=== PATIENT | female | born 1990 | race Caucasian/White ===

== ENCOUNTER 2024-03-28 18:06 | Emergency (ER) | payer MEDICAID, SELFPAY ==
[2024-03-28 18:11] VITALS: BP 111/80; PULSE 65; TEMP 36.7; O2SAT 100; BMI 24.6
--- NOTE | 2024-03-28 18:19 | CT_ITS ---
The [address] [address] Patient Name: GUERLINE ESCUDERO MRN: [id number] date: 1990 Sex: F Assigned Patient Location: ER Current Patient Location: ER Accession/Order Number: [id number] Exam Date: 03/28/2024 19:06 Report Date: 03/28/2024 20:07 At the request of: MEGAN FLOOD Procedure: CT head/brain wo con EXAM: CT head/brain wo con HISTORY: Dizzy, near syncope COMPARISON: None. TECHNIQUE: CT brain noncontrast. Axial scans with reformatted coronal sagittal images. Individualized dose reduction used for this exam. FINDINGS: A density normal without mass, edema or hemorrhage. Normal size ventricles without mass effect or shift. No extra-axial subdural collection or hematoma. No skull fracture or bony lesion. Visualized mastoid, middle ear cavities clear, no sinus fluid level. CT/CT head/brain wo con IMPRESSION: Negative head CT, no acute abnormality seen. Electronically authenticated by: ALEX GONZALES Date: 03/28/2024 20:07
--- NOTE | 2024-03-28 18:19 | ECG_ITS ---
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
--- NOTE | 2024-03-28 18:20 | ED_ITS ---
HPI - Dizziness General Chief Complaint: Dizziness Stated Complaint: LIGHT HEADED, DIZZY, PASSING OUT Time Seen by Provider: 03/28/24 18:13 Source: patient Mode of arrival: walk-in History of Present Illness HPI Narrative: Patient is a 34-year-old female who presents to the emergency department for a 1 hour history of dizziness, lightheadedness and near syncope. She states she was at work when the symptoms developed, however she has not felt well for several days. She has had mild cough and congestion with no objective fevers. She reports decreased appetite but no vomiting or diarrhea. No urinary symptoms. She is not concerned for . No medications taken prior to arrival. She describes the dizziness as being off balance with some sensation that the room was spinning. She states she has had similar symptoms in the past but not regularly. Related Data Previous Rx's ?Medication ?Instructions ?Recorded meclizine 25 mg chewable tablet 25 mg PO QID PRN dizziness #12 tabs 03/28/24 (Antivert) ondansetron 4 mg disintegrating 4 mg PO Q6H PRN nausea and 03/28/24 tablet vomiting #12 tabs Allergies Allergy/AdvReac Type Severity Reaction Status Date / Time No Known Drug Allergies Allergy Verified 03/28/24 18:15 Review of Systems ROS Constitutional Denies: fever or chills Eyes Denies: change in vision Ears, nose, mouth, and throat Denies: throat pain or nasal congestion Respiratory Denies: shortness of breath Gastrointestinal Denies: nausea or vomiting Musculoskeletal Denies: back pain or neck pain Integumentary/Breast Denies: rash Neurological Reports: dizziness; Denies: headache, numbness in extremities or weakness in extremities Hematologic/Lymphatic Denies: easy bruising or easy bleeding Exam Narrative Exam Narrative: Gen.: Awake, alert, in no distress Head: Normocephalic, atraumatic ENT: Moist mucous membranes, TMs clear Respiratory: No respiratory distress, lungs clear bilaterally Cardio: Regular rate and rhythm Gastrointestinal: Abdomen is soft, nondistended and nontender to palpation Extremities: Moves extremities equally Psych: Normal mood and affect Neuro: No focal neuro deficit Skin: Warm, dry, intact Constitutional Vital Signs, click to edit/add: Last Vital Signs Temp 98.0 F 03/28/24 18:11 Pulse 63 03/28/24 20:53 Resp 16 03/28/24 20:53 BP 114/80 03/28/24 20:53 Pulse Ox 100 03/28/24 20:53 O2 Del Method Room Air 03/28/24 20:53 Course Vital Signs Vital signs: Vital Signs Temperature 98.0 F 03/28/24 18:11 Pulse Rate 65 03/28/24 18:11 Respiratory Rate 18 03/28/24 18:11 Blood Pressure 111/80 03/28/24 18:11 Pulse Oximetry 100 03/28/24 18:11 Oxygen Delivery Method Room Air 03/28/24 18:11 Temperature 98.0 F 03/28/24 18:11 Pulse Rate 63 03/28/24 20:53 Respiratory Rate 16 03/28/24 20:53 Blood Pressure 114/80 03/28/24 20:53 Pulse Oximetry 100 03/28/24 20:53 Oxygen Delivery Method Room Air 03/28/24 20:53 MDM - Dizziness MDM Narrative Medical decision making narrative: Patient is hemodynamically stable, no PE risk factors, she was treated for dizziness with IV fluids, Zofran, Antivert and reports that the dizziness has resolved. CT of the brain was performed, laboratory studies reviewed and noted within normal limits. Patient refused COVID test. She maintains normal cardiac monitoring. Urine specimen with no evidence of dehydration or UTI. Patient placed on Antivert and Zofran for home to follow-up with PCP and return to the ER if symptoms change or worsen Of note, the patient tested positive for opiates and she was not given any in this ER or prescribed any as an outpatient. Opiate abuse may be contributing to her dizziness. Patient was asked by nursing staff on arrival if she used any drugs or alcohol and she became defensive. Her drug screen results were not given with family at the bedside. SUPERVISED APC VISIT, PHYSICIAN ATTESTATION: Based on the medical record the care appears appropriate. ? Medical Records Attestation: I reviewed the patient's medical records. Lab Data Attestation: I reviewed the patient's lab results. Labs: Lab Results 03/28/24 03/28/24 Range/Units 18:30 20:15 WBC 11.6 H (4.0-11.0) 10^3/uL RBC 4.62 (4.20-5.40) 10^6/uL Hgb 14.5 (12.0-16.0) g/dL Hct 41.8 (36.0-48.0) % MCV 90.5 (81.0-99.0) fL MCH 31.4 (26.7-34.0) pg MCHC 34.7 (29.9-35.2) g/dL RDW 12.1 (11.0-15.0) % Plt Count 409 (150-450) 10^3/uL MPV 9.6 (9.5-13.5) fL Neut % (Auto) 62.0 (43.0-75.0) % Lymph % (Auto) 26.7 (20.5-60.0) % Mccormick % (Auto) 8.9 (1.7-12.0) % Eos % (Auto) 1.4 (0.9-7.0) % Baso % (Auto) 0.7 (0.2-2.0) % Neut # (Auto) 7.2 H (1.4-6.5) 10^3/uL Lymph # (Auto) 3.1 (1.2-3.8) 10^3/uL Mccormick # (Auto) 1.0 H (0.3-0.8) 10^3/uL Eos # (Auto) 0.2 (0.0-0.7) 10^3/uL Baso # (Auto) 0.1 (0.0-0.1) 10^3/uL Abs Immat Gran (auto) 0.04 H (0.00-0.03) 10^3/uL Imm/Tot Granulo (auto) 0.3 (0.0-0.5) % Sodium 135 L (136-145) mmol/L Potassium 3.6 (3.5-5.1) mmol/L Chloride 100 (98-107) mmol/L Carbon Dioxide 24.5 (21.0-32.0) mmol/L Anion Gap 14.1 BUN 9.0 (7.0-18.0) mg/dL Creatinine 0.84 (0.55-1.02) mg/dL Est GFR ( Amer) >60 (>=60) Est GFR (Non-Af Amer) >60 (>=60) BUN/Creatinine Ratio 10.7 Glucose 106 (74-106) mg/dL Lactate 1.1 (0.4-2.0) mmol/L Calcium 8.9 (8.5-10.1) mg/dL Total Bilirubin 0.6 (0.2-1.0) mg/dL AST 11 L (15-37) U/L ALT 15 (14-59) U/L Alkaline Phosphatase 101 (46-116) U/L Troponin I High Sens <4.0 L (4.0-51.3) pg/mL Total Protein 7.5 (6.4-8.2) g/dL Albumin 3.7 (3.4-5.0) g/dL Globulin 3.8 g/dL Albumin/Globulin Ratio 1.0 TSH 2.660 (0.358-3.740) uIU/mL Serum HCG, Qual Negative (NEGATIVE) Urine Color Lt. yellow (YELLOW) Urine Clarity Clear (CLEAR) Urine pH 6.0 (5.0-9.0) Ur Specific [place] 1.010 (1.005-1.025) Urine Protein Negative (NEG/TRACE) mg/dL Urine Glucose (UA) Negative (NEGATIVE) mg/dL Urine Ketones Negative (NEGATIVE) mg/dL Urine Occult Blood Negative (NEGATIVE) Urine Nitrite Negative (NEGATIVE) Urine Bilirubin Negative (NEGATIVE) Urine Urobilinogen 0.2 (0.2-1.0) EU/dL Ur Leukocyte Esterase Negative (NEGATIVE) Urine Opiates Screen Positive A (NEGATIVE) Ur Buprenorphine Scrn Negative (NEGATIVE) Ur Oxycodone Screen Negative (NEGATIVE) Urine Methadone Screen Negative (NEGATIVE) Ur Barbiturates Screen Negative (NEGATIVE) U Tricyclic Antidepress Negative (NEGATIVE) Ur Phencyclidine Scrn Negative (NEGATIVE) Ur Amphetamines Screen Negative (NEGATIVE) U Methamphetamines Scrn Negative (NEGATIVE) U Benzodiazepines Scrn Negative (NEGATIVE) Urine Cocaine Screen Negative (NEGATIVE) U Cannabinoids Screen Negative (NEGATIVE) Imaging Data CT scan - head: Attestation: I have reviewed the pertinent imaging results. Radiologist's impression: ITS Impressions Head CT 03/28/24 18:19 IMPRESSION: Negative head CT, no acute abnormality seen. Electronically authenticated by: ALEX GONZALES Date: 03/28/2024 20:07 ECG Data Attestation: I personally reviewed and interpreted this ECG as follows: (Normal sinus rhythm at a rate of 57, no acute ST elevation or ectopy. EKG reviewed by attending physician) Discharge Plan Discharge Stand Alone Forms: Portal Instructions Chief Complaint: Dizziness Clinical Impression: Dizziness Patient Disposition: Home, Self-Care Time of Disposition Decision: 20:35 Condition: Good Mode of Transportation: Private Vehicle Prescriptions / Home Meds: New ondansetron 4 mg tablet,disintegrating 4 mg PO Q6H PRN (Reason: nausea and vomiting) Qty: 12 0RF meclizine [Antivert] 25 mg tablet,chewable 25 mg PO QID PRN (Reason: dizziness) Qty: 12 0RF Print Language: Mongolian Instructions: Dizziness (ED) Referrals: Physician,Non-Staff, MD [Primary Care Provider] - 1 week Discharge Date/Time: 03/28/24 20:57
[2024-03-28 18:32] VITALS: PULSE 62
[2024-03-28] MEDS: 0.9 % SODIUM CHLORIDE 1,000 ML 999 ML IV (18:38)
[2024-03-28] MEDS: MECLIZINE HCL 12.5 MG TABLET 25 MG PO (18:38)
[2024-03-28] MEDS: ONDANSETRON PF 4 MG/2 ML VIAL IV (18:39)
--- NOTE | 2024-03-28 18:43 | PC.NURSE ---
pt to ED with c/o dizziness. states onset approx an hour ago at work but also states this has been occurring frequently. pt states room spinning sensation with mild nausea. 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 pt denies use of drugs or alcohol. states she feels extra tired today which is new. denies PMH. family at bedside with pt. pt states having to leave work d/t dizziness and room spinning sensation. pt very drowsy while speaking with this RN. 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
[2024-03-28 18:45] LABS: Basophils Absolute Auto 0.1 10^3/uL (0.0-0.1); Basophils Percent Auto 0.7 % (0.2-2.0); Eosinophils Absolute Auto 0.2 10^3/uL (0.0-0.7); Eosinophils Percent Auto 1.4 % (0.9-7.0); Hematocrit 41.8 % (36.0-48.0); Hemoglobin 14.5 g/dL (12.0-16.0); Immature Granulocytes Abs Auto 0.04 10^3/uL (0.00-0.03); Immature Granulocytes Pct Auto 0.3 % (0.0-0.5); Lymphocytes Absolute Auto 3.1 10^3/uL (1.2-3.8); Lymphocytes Percent Auto 26.7 % (20.5-60.0); Mean Corpuscular HGB Conc 34.7 g/dL (29.9-35.2); Mean Corpuscular Hemoglobin 31.4 pg (26.7-34.0); Mean Corpuscular Volume 90.5 fL (81.0-99.0); Mean Platelet Volume 9.6 fL (9.5-13.5); Monocytes Percent Auto 8.9 % (1.7-12.0); Neutrophils Absolute Auto 7.2 10^3/uL (1.4-6.5); Platelet Count 409 10^3/uL (150-450); Red Blood Count 4.62 10^6/uL (4.20-5.40); Red Cell Distribution Width 12.1 % (11.0-15.0); White Blood Count 11.6 10^3/uL (4.0-11.0)
--- NOTE | 2024-03-28 18:56 | PC.NURSE ---
nursing report given to Ambar BASS, all questions answered.
[2024-03-28 18:57] LABS: HCG Qualitative NEGATIVE (NEGATIVE); Internal Control Within Normal Limits
[2024-03-28 19:02] VITALS: BP 103/72; PULSE 60; O2SAT 97
[2024-03-28 19:03] LABS: Lactate/Lactic Acid 1.1 mmol/L (0.4-2.0)
--- NOTE | 2024-03-28 19:05 | PC.NURSE ---
States no dizziness now
[2024-03-28 19:12] LABS: Alanine Aminotransferase 15 U/L (14-59); Albumin Level 3.7 g/dL (3.4-5.0); Alkaline Phosphatase 101 U/L (46-116); Anion Gap 14.1; Aspartate Amino Transferase 11 U/L (15-37); BUN Creatinine Ratio 10.7; Bilirubin Total 0.6 mg/dL (0.2-1.0); Calcium 8.9 mg/dL (8.5-10.1); Carbon Dioxide 24.5 mmol/L (21.0-32.0); Chloride 100 mmol/L (98-107); Estimated GFR (African America >60 (>=60); Estimated GFR (Non-African Ame >60 (>=60); Globulin 3.8 g/dL; Glucose 106 mg/dL (74-106); Potassium 3.6 mmol/L (3.5-5.1); Sodium 135 mmol/L (136-145); Total Protein 7.5 g/dL (6.4-8.2); Troponin I High Sensitivity <4.0 pg/mL (4.0-51.3)
[2024-03-28 20:03] VITALS: BP 121/79; PULSE 68; O2SAT 95
[2024-03-28 20:26] LABS: Bilirubin Urine NEGATIVE (NEGATIVE); Blood Urine NEGATIVE (NEGATIVE); Clarity Urine CLEAR (CLEAR); Color Urine LT. YELLOW (YELLOW); Glucose Urine UA NEGATIVE (NEGATIVE); Ketones Urine NEGATIVE (NEGATIVE); Leukocyte Esterase Urine NEGATIVE (NEGATIVE); Nitrite Urine NEGATIVE (NEGATIVE); Protein Urine NEGATIVE (NEG/TRACE); Urobilinogen Urine 0.2 EU/dL (0.2-1.0)
[2024-03-28 20:32] LABS: Urine Microscopic Indicated NO
[2024-03-28 20:37] LABS: Amphetamine Screen Urine NEGATIVE (NEGATIVE); Barbiturates Screen Urine NEGATIVE (NEGATIVE); Benzodiazepines Screen Urine NEGATIVE (NEGATIVE); Buprenorphine Screen Urine NEGATIVE (NEGATIVE); Cannabinoid Screen Urine NEGATIVE (NEGATIVE); Cocaine Screen Urine NEGATIVE (NEGATIVE); Methadone Screen Urine NEGATIVE (NEGATIVE); Methamphetamines Screen Urine NEGATIVE (NEGATIVE); Opiate Screen Urine POSITIVE (NEGATIVE); Oxycodone Screen Urine NEGATIVE (NEGATIVE); Phencyclidine Screen Urine NEGATIVE (NEGATIVE); Tricyclic Antidepressant Urine NEGATIVE (NEGATIVE)
[2024-03-28 20:53] VITALS: BP 114/80; PULSE 63; O2SAT 100
== END 2024-03-28 20:57 | disposition home or self-care (01) ==
PROVIDERS: Physician Assistant; Emergency Provider Internal Medicine
DX: R42 Dizziness and giddiness (principal); F11.90 Opioid use, unspecified, uncomplicated
CPT/HCPCS: 36415; 70450; 80053; 80307; 81003; 83605; 84443; 84484; 84703; 85025; 87811; 93005; 96361; 96374; 99285; J2405

== ENCOUNTER 2024-08-09 11:50 | Emergency (ER) | payer MEDICAID, SELFPAY ==
[2024-08-09 11:56] VITALS: BP 141/86; PULSE 89; TEMP 37.2; O2SAT 99; BMI 23.4
--- OUTSIDE RECORDS SUMMARY | 2024-08-09 11:57 | XMS_ITS | CCD ---
Author Organization [employer] [facility] Results Test Name Value Interpretation Reference Range Facil ity Prescriptions/Work Noteson 0 09-26-2021 Prescriptions/Work Notes [id number] .00CD:127 Normal [facility] RAD - Preliminary Cat Scan R eporton 09-26-2021 RAD - Preliminary Cat Scan Report [id number] .00CD:127 Normal [facility] Comment on above: Other Comment: wrong fin XR Wrist 3+ Views Lefton XR Wrist 3+ Views Left Exam Date/Time: 08/22/2021 17:46 EST Reason for Exam: Pain, Traumatic Report IMPRESSION: NEGATIVE LEFT WRIST. EXAM: Left wrist, 4 views. CLINICAL HISTORY: Pain, Traumatic COMPARISON: None FINDINGS: AP, lateral, oblique and navicular views of the left wrist demonstrate no evidence of a fracture, dislocation, bone or joint abnormality. FINAL REPORT Dictated: 08/23/2021 8:06 am Eleazar Myers MD, V. Signed (Electronic Signature): 08/23/2021 8:06 am Signed by: Eleazar Myers MD, V. Transcribed by: BEN Technologist: VARUN [facility] Coding Summary.on 08-22-2021 Coding Summary. CD:[id number] h0bWw+PGhlYWQ+WF4MDJN yF53kbKKqxH8XF1lZFN7X HOUAXEWLDU1YPF5kqFD8S WorF0UdlcFs ViwouAQyZG25LNf5NYD3q LoxZBwduR7sqRWhV6z7Wm TbHH78iX04QLdgUYDiViS 3LjZpbjsgbWFy L1alItCndRPjRnn+PHRhY mxlIHdpZHRoPScxMDAlJy JmdWjzXQ0gZt1sWALjPJP vbGxhcHNlOiBj v1hbRVXjOBzzDI9xdUcqG 8UfyHQ5VGHwn7n7Sc25dP I+OQPeYVM3qSgwIEjki06 5ExSnp3ilGNS1 tYCsRCqkCSX5V43jw6O6Y MCmBPAaQNC8vIU3yN3tnO kinyhoX8DzpVKdPvW4MHC 3cRNevK6xnViz laepyH8iWwd+N61FBZ9GP WIKCU4IRhc4K6SjXslmjR I+JK91EGNpYM74tVXrfTQ yu0wgyFz1FqEc RXMaDOY8vSkpICbdk7ElT JBeM16owIFup7K4FLCquT ynpIGhZcTdhBU5fU8pTFi guhoke4qhzgrn Aypje7zidp24sL61A28vL ZbyYLZoTKQ8RCDhEJWoqL auoe0zxT9mDr9+VGcrh0g qu6qjvBd8FvGt NCTvpvRdjNzqRSJ6g1SiT h72I3YveCewv9ZlEwo6dn 61wVFkm4H2xQR0BIhaINK knZ5gOChgJdS3 LMPeMbGbaP28sCFbWBliA q0ijUudxVhgRA7bLVWwpv njHOSkgW6lVRIzpZWocRs kUN7aOAOnbybm e760UmXsYRU5KARvoXLtT 6DydX2nPkPoVFPfZFYwD2 BiqEUzIUlvP312TLnrQnB 1IRBzguSuL7Yw IDCgkFkaKwW3e2J8Hk0Vn 1YjxqhbKRI6BUpaTMGrYs T3OvOjElW5A5NmSyo9ZKM aaDerAN8dV8Xk BCFfbeyotqeawAH8SHDoC VOzxU26lNUrQDcgUc7sd3 S2u945DQMqXETtzB40Qq2 udDogMTBwdCBU eB2oxcmzw0hqwafnYjUqQ UStFHb8EZk9VSDtrCkaXw WrBON3MtY5YKN9dOMdaB9 mfIzcksfinQ8m Oyc+F19pvN0yCOG8REJ8e cjtSXFhriLdAZ69YA99Q7 RyPjwvdGFibGU+PGRpdiB xcLuoSG0eHmDo v9bum5QsNVzsF5RkMEBtW HntHgt3WVEhGKT2gXS4cG 5pQLLlHLifc2V5hYK7E4A ahnFqnh2ku5cd FXCmNGzoG82vdHMyg3V6X MRjuKC2NPEpeKftYkEenQ 93Oyc+DZEeaIwml7AlYis bg9zdw0pqzPr7 QxAwIGEnlvXqlWkdHEK9k 4QyHy14I57zPWkqDOAmDW GyCMFaAYYafFbvdc4keQ6 wIi8+PGNvbCB3 xEN3nO4yLGZlMnP5EHymD 714NjRhlUWtQqfpa4xsn6 tqzQl5GfDkEXXpwpCyaXa mJUZ7y3HaLl33 S76jGEjtQNXiRSYdFDFvR PWqzQfvum1gfZ9qTd5+PC 5jp2uxip83xX02cPS+PHR uFSI3rJmvXMcw RPYweX5sJLuiCoY5QGQuI nOixQ94iXOyMKevLb4nlJ zmqJhtPV8oLPZjvpjme18 9VsEml6kqQGPm bAEvRSiaVZP5J28id0E6Z ZMzTJDuSPU1bUB9tV7huN lnbjogbGVmdDsgdmVydGl gIGczCRegG996 IHRvcDsnPlBhdGllbnQgT eWgYJu0D4AsBtl1MYBpdX tmBT1cmRWeLRhzTn6xyJo ddWeiTL0qKTYl acyfp269CuTpy3xdDOApv VPeTEjaVQJ4E85lg2Q6LQ OpLSUuDEF4yPP4wO8omNb nbjogbGVmdDsg hqUezRzeQWmbNFmvP793W HRvcDsnPkJpcnRoIERhdG F0ZN75IW18vDWyx2N9pLD 6O2HkKDMfklfx pilurCQ5XLTvQSUfpH79V i1sbCpiHs5eMAGzEBO2XR UmsLEeC5ZekH0rPnYxTNC kHXAiG7TxmBJi VIdvU441YSwcVrM8UVIfz tZyJ8HmNPJreZejJoX2a4 X2Mi9US6B3KT45ND42sPE ql7E4kPA4Q3Se NXErsekugoiczSA4YRKiN TZzlU47Em6viRwtFb4pPB KmCGI1IOMzvCQcS3LfzA2 yOiAjMDAwMDAw U6LllBCsHYmaN077QElmM pX2WUZucaKsJ4HkJZFxeV nyOcV8h2Y8Sf3RRSc5RF6 5RZ52aIPul9O8 aAS3W6OmHSUtpocmprxxk HH8ZICdSSZzkD58Xp9csK cwGa7nKCOqGXE2MAYenIK fQ5XuvY0tCgYm JJLiOUQqX6TrzLYhFXkhS 475SDicByA0WXKqwwQvU8 YmPLGegNfrZcC5y2T5Fc1 WVIQmNS09WJO4 mSJ8QE72VG98F0AuWcddr GFibGU+PHRhYmxlIHdpZH RoPScxMDAlJyBzdHlsZT0 hNm9dSMVpXNIn lNqwpETmZyAjx4ttKASxQ UubPD8efUaiM3JfjUJ7JC Tzs8h6Zp19L12rU3YmvWN +ORCtfGE3wZC9 zU5zAtYfDbN8YOugL019I aMzpDNuFzsrd5wnr0tafM k6IaT9FOIofvGvfRrsVFD 6p1VnHo48S40o IHdpZHRoPSIxNSUiIHZhb Gfoej2akD4qBa2+PGNvbC A2mAV5zS4oRmSxXkD5VBy hQ218AsBqiXLb Xhzjj4mct9tdfZq4PmTgQ IMrisJjrGchCRW7s7JoCx 75X6XwaWkgx6YeTwf4ib6 2rEQoh0E2nJM6 H3EdJGQebleoqIXbbOmrI H8hKKYslzwrOWDerI6hFK ZuL1s5DwEfUlJ5LBrrY4R lftG9IVQpgEYe TBzrIWI1R85kq3W0CAMlG KNoGNM6qWH1mN8njOfgrg ogbGVmdDsgdmVydGljYWw iDFtuO577RMYq lVnnBKWkuD5nUQTucQCqe WgjRR8qCQKqhschMiTWQy VZMoefSI0SDZyiFBvgwBO +DMCjQHW8bHaa NKypKNPdvK9uNJZmC0g1S dZdPgJ4RUrdP2GnROKtid seAc54mJ0kYjSaBxJ4NLp fW3ZyqvV0QXUe bYGdCCvaGCN9X56sv5R9R PAiPOSbUIR6hZQ5aO6tcF lnbjogbGVmdDsgdmVydGl hAVxrVZtbJ841 VCCruAmtMcT5SlY6YoA6D Te8I3RdAch4LOBogVhhPK 8enWDyRJqnKo4bbCupoDh jJR7uUIDeclof HWKsiX4yMBJdxMBuvNjqU J8pGMBeukcww758AcXvPB G8ZDEyoLAdV0UkpO0iUgB dKIBsFFJbY7Vn hOOiYFojJ771ZFdhReH4S UTuiuGpR4YoYUAsvUidNz E7f0M4Po9fIkLYAONvgdc vdGQ+PHRkIHN0 zHsqIQheIJZleB0eAFKlM 0g0MjQgZcF2HHsyR7RaMF IojezbRs38rK0cUjSeJvD 1LLloS7OtxzF0 TMRfbJXcDTnyLZV9O53bv 5Z3OVVzEUXlINC0dPE0iW 1hbGlnbjogbGVmdDsgdmV ydGljYWwtYWxp U979PGQijCyiRtAmzKRmS TwvdGQ+VOFqIFG8iRdfAA xrFKTftM3wCRZfS0q3TzL qOyP2KKbmC5Gs LSNogyniBp65zE3tEuCfV iJ7UBneW4BnziE1KDSjbF OjUOvzKYM7N89tj0V7YKF jHIXiEZE7kNC0 nU8lcJlohhubbLMaaIoae rSlgJoxVPsoSUrbU658KQ NgkWlkFaVlQWFaPJ9ozHz vdGQ+NX32ir43 Z4FaApuaMsm4EBIvQIO6z SZ2wT4yAUIoCMtrh9P7rT H8D2BowrGjaq8dl1ozJGF wGIpoX69ssHNw j0S6NXFygNB6ZYKqvPojY bLdhH53Hdi+PGNvbGdyb3 QiMptkf7kvw0ddhBq0AtI wJSIgdmFsaWdu HTL0s8BkKw25M11cRAbcT HRoPSIzMCUiIHZhbGlnbj 5eyY7rYw4+LOJncFR0mBZ 8sL0yAjKcHtY0 DDlxR514LbPgvKWnJrfdb 7nzm4lchLm1JtUcRAWpiw VbsSyeWSQ4p1WyJx67R6D rvBopk5RqRzq3 wq47fDGrf8O9tJM0R0LfP ATrlavkcPIazWhuWI8dAU LddokrXSUgeM3pPKUkY1a 1GiGpTlO3IQvf Y1HmnrI2PKJbpWIfDFYcu ZLZoA7dbxdbk3jfwtxcUk DfOFAzFUc8KTm3IOJmeCo xHrOqMCW0NxK8 OAM2yXGwxR8yfDlvqwfii G9wOyc+QSu6u8cmvLWbPB 7xoYP7TJ25QG99nHHsu1O 3bWC5Q0PoCTXr iuazekrnwBE8WCPoPTPay Y18Zw4ulTpwJi0fOLSdPK W2FDDlmCZkP4EzpE0jHqL uSQQtPNHqR0Ch pIReGVstU728GWgyAeP5T QPezaQdS6ZoIJEkxPsvAw F0s0A0Bn3SJV86TQ05EQ5 3jLKlk2V0fZH6 Y0WnTDMpvndfmhgwsII2P QJuZYWgmU32Oz4xgThtYg 9oQVSqZHU5YDUqlHKfZ5Y ifZ7xOyJdSEMk QTOcQ1WtkPJiITusD032Y LdhRlC4ZTQzrwKbM1XlFQ MjnIrpPkX5m3Q8Zc5WOf1 3OJ28HO29rDMu o8T6zDZ0X3VvAZJdtqqbu lzpeSL9RKUjYLJkcH23Xo 0mzRliTa2iKJNvIXX5ZJX mmMNsE0AulZ0s DaEwAYDlQKVtC2NjsAQiN AidF379YLjjDfM3JHQwct JmP0EiKESwvHfuNiZ3u6J 9Fu8FDKikfjr8 E9FdIejcnTR+GT19HFOeL I80hRHxqGJkl7yufPo4Hu EeYWGfRNA8fLbyIBnqw0R zPEApH08obPWq c2U6 (more content not included)... [facility] Consent for Treatmenton 07-30 Consent for Treatment [id number] .00CD:127 Normal [facility] Discharge Instructionson Discharge Instructions [id number] .00CD:127 Normal [facility] ED Clinical Summaryon 2021 ED Clinical Summary [place] [id number] ED Clinical Summary Person Information Name: GUERLINE ESCUDERO/[facility] Age: 31 Years : 1990 Sex: Female Language: Albanian PCP: Rajat MCDONOUGH MD Marital Status: Single Phone: [phone] Visit Id: Visit Reason: Wrist pain-swelling; left wrist pain Speciality: Acuity: 4 Enc Type: Emergency Med Service: Emergency Arrival: 08/22/2021 17:15:06 Discharge: 08/22/2021 18:05:50 LOS: 000 00:50 Checkin: 08/22/2021 17:15:06 Checkout: 08/22/2021 18:05:50 Dispo Type: Home (Routine DC) EVENTS: Event Name Event Status Request Date/Time Start Date/Time Complete Date/Time Arrive Complete 08/22/2021 17:15:06 08/22/2021 17:15:06 08/22/2021 17:15:06 Document Home Meds Request 08/22/2021 17:15:06 Triage Complete 08/22/2021 17:15:06 08/22/2021 17:26:10 08/22/2021 17:26:10 Bed Assign Complete 08/22/2021 17:20:23 08/22/2021 17:20:23 08/22/2021 17:20:23 Dr Exam Complete 08/22/2021 17:20:23 08/22/2021 17:21:37 08/22/2021 17:21:37 RN Exam Complete 08/22/2021 17:20:23 08/22/2021 17:34:23 08/22/2021 17:34:23 Registration Complete 08/22/2021 17:21:37 08/22/2021 17:30:06 08/22/2021 17:30:06 Dr Exam Complete 08/22/2021 17:22:51 08/22/2021 17:22:51 08/22/2021 17:22:51 X-Ray Complete 08/22/2021 17:25:07 08/22/2021 17:25:24 08/22/2021 17:46:23 Reg Complete Request 08/22/2021 17:30:06 Reg Bed Request Complete 08/22/2021 17:30:06 08/22/2021 17:30:06 08/22/2021 17:30:06 Wet Read Complete 08/22/2021 17:46:23 08/22/2021 17:49:44 08/22/2021 17:49:44 Discharge Complete 08/22/2021 17:51:34 08/22/2021 18:05:55 08/22/2021 18:05:55 Transfer Complete 08/22/2021 18:05:55 08/22/2021 18:05:55 08/22/2021 18:05:55 ADDRESS: [address] [place] [id number] PHYS DOC NOTES: MEDICAL INFORMATION: Prescriptions Given: New Medications [facility], [address] [place], [place] [id number], [phone] naproxen (Naprosyn 500 mg Tab) 1 Tablets By Mouth 2 times a day. Refills: 0. PATIENT EDUCATION INFORMATION: Instructions: Wrist Sprain, Adult Follow up: With: Address: When: Jeremias Lewis [address] [place] [id number] Business (1) In 3 days 08/25/2021 DIAGNOSIS: Wrist sprain [facility] ED Note-Physicianon 08-22-19 ED Note-Physician Basic Information Time Seen: Jose Carlos Moyer DO 08/22/2021 17:21 Chief Complaint c/o left wrist pain. States cut wrist with a kitchen knife a few weeks ago. Rednes and swelling noted to wrist. History of Present Illness 31-year-old female comes to the ED for evaluation of left wrist pain. She states she lacerated her left wrist a few weeks ago with a knife while cooking. She also fell approximately 10 days ago landing on the left wrist. She presents with tenderness and swelling to the volar aspect. Pain is made worse with movement. No weakness. No paresthesias. No prior treatments. No other complaints or concerns. Review of Systems A 10 point review of systems is negative except as noted above. Medical and Surgical History: Reviewed and noted Social history: Lives at home Tobacco: Current Physical Exam Vitals & Measurements T: 36.5 ?C(Oral) HR: 73(Peripheral) RR: 20 BP: 116/81 SpO2: 100% HT: 152.0 cm HT: 152 cm WT: 59.0 kg WT: 59 kg BMI: 25.54 Nurses notes and vital signs reviewed and patient is not hypoxic. General: The patient appears well, resting comfortably. Skin: Warm, dry. Head: Atraumatic. Neck: No JVD. Eye: Normal conjunctiva. Ears, Nose, Mouth, and Throat: Moist mucous membranes. Cardiovascular: Strong distal pulses. Chest wall: Respiratory: Respirations are nonlabored. Back: Normal range of motion. Musculoskeletal: Small healing scar to the volar aspect of the left wrist. Proximal to the wrist joint there was an area of tenderness and swelling. No fluctuance or induration. This is made worse with extension of the wrist. Findings most likely represent injury to the tendon sheath or ganglion cyst. No overlying ecchymosis or erythema. No lymphangitis. Gastrointestinal: Urological: Neurological: Awake and alert. No focal deficits. Follows commands. Psychiatric: Cooperative. Medical Decision Making Imaging shows no fracture dislocation. She has tenderness and swelling to the volar aspect of the wrist. She has had multiple traumas to the area including a laceration and a fall. The swelling likely represents ganglion cyst or possible tendon injury from a laceration. No evidence of infectious process. No evidence of neurovascular compromise. She is placed in a Velcro wrist splint for comfort and is discharged home with anti-inflammatories and orthopedic follow-up. Patient was encouraged to return to the ED if symptoms worsen or change. Assessment/Plan Wrist sprain (S63.248A: Unspecified sprain of unspecified wrist, initial encounter) Orders: naproxen, 500 mg = 1 tab(s), Oral, BID, # 20 tab(s), Refills(s) 0, Pharmacy: [facility], 152, cm, 08/22/21 17:26:00 EST, Height/Length Dosing, 59, kg, 08/22/21 17:26:00 EST, Weight Dosing Splint Application Wrist XR Wrist 3+ Views Left Disposition Plan Patient Discharge Condition Disposition: Discharged home Condition: Improved and stable Counseled: Patient and/or family were counseled to workup, results, treatment plan and follow-up recommendations Discharge Prescription List Prescriptions Naprosyn 500 mg Tab, 500 mg= 1 tab(s), Oral, BID Follow-up With When Contact Information Jeremias Lewis In 3 days 08/25/[address] [place] [address] [facility] (1) Additional Instructions: Patient Education Wrist Sprain, Adult Attestation Patient seen and evaluated by the physician fundraising assistant. Attending physician was present in the emergency department and supervised care. This visit was performed by both the physician and an APC. I performed all aspects of the MDM as documented. This report was transcribed using voice recognition software. Every effort was made to ensure accuracy, however, inadvertently computerized viscosity tester mistakes may be present. Appropriate healthcare PPE was used in evaluating this patient. The patient was placed in a mask. The healthcare provider was wearing mask, gloves, and utilizing proper hand hygiene. All equipment was properly cleansed. Problem List/Past Medical History Ongoing Fibromyalgia Nerve pain Scoliosis Thoracic back pain Historical Gestational HTN Group B streptococcus history of epilepsy None Procedure/Surgical History Cholecystectomy, gallbladder surgery. Medications Inpatient No active inpatient medications Home No active home medications Allergies Ultram (Vomiting) morphine (Hives) Social History Alcohol - Denies Alcohol Use, 12/17/2009 Current, 05/11/2018 Employment/School Unemployed, 05/14/2012 Exercise Exercise frequency: 1-2 times/week. Self assessment: Good condition. Exercise type: Walking., 05/14/2012 Home/Environment Lives with Significant other. Living situation: Home/Independent. Alcohol abuse in household: No. Substance abuse in household: No. Smoker in household: Yes. Injuries/Abuse/Neglec t in household: No. Feels unsafe at home: Yes. Safe place to go: Yes. Family/Frie (more content not included)... [facility] Comment on above: Result Comment: Elec tronically Signed By: Kyree Phipps PA-C\.br\Date and Time Signed: 08/22/21 17:53 EST\.br\Electronically Co-Signed By: Jose Carlos Moyer DO\.br\Date and Time Co-Signed: 08/22/21 18:42 EST ED Patient Education Noteon 08-22-2021 ED Patient Education Note Orthopedics Wrist Sprain, Adult A wrist sprain is a stretch or tear in the strong, fibrous tissues (ligaments) that connect your wrist bones. There are three types of wrist sprains: ? Grade 1. In this type of sprain, the ligament is stretched more than normal. ? Grade 2. In this type of sprain, the ligament is partially torn. You may be able to move your wrist, but not very much. ? Grade 3. In this type of sprain, the ligament or muscle is completely torn. You may find it difficult or extremely painful to move your wrist even a little. What are the causes? A wrist sprain can be caused by using the wrist too much during sports, exercise, or at work. It can also happen with a fall or during an accident. What increases the risk? This condition is more likely to occur in people: ? With a previous wrist or arm injury. ? With poor wrist strength and flexibility. ? Who play contact sports, such as football or soccer. ? Who play sports that may result in a fall, such as skateboarding, biking, skiing, or snowboarding. ? Who do not exercise regularly. ? Who use exercise equipment that does not fit well. What are the signs or symptoms? Symptoms of this condition include: ? Pain in the wrist, arm, or hand. ? Swelling or bruised skin near the wrist, hand, or arm. The skin may look yellow or kind of blue. ? Stiffness or trouble moving the hand. ? Hearing a pop or feeling a tear at the time of the injury. ? A warm feeling in the skin around the wrist. How is this diagnosed? This condition is diagnosed with a physical exam. Sometimes an X-ray is taken to make sure a bone did not break. If your health care provider thinks that you tore a ligament, he or she may order an MRI of your wrist. How is this treated? This condition is treated by resting and applying ice to your wrist. Additional treatment may include: ? Medicine for pain and inflammation. ? A splint to keep your wrist still (immobilized). ? Exercises to strengthen and stretch your wrist. ? Surgery. This may be done if the ligament is completely torn. Follow these instructions at home: If you have a splint: ? Do not put pressure on any part of the splint until it is fully hardened. This may take several hours. ? Wear the splint as told by your health care provider. Remove it only as told by your health care provider. ? Loosen the splint if your fingers tingle, become numb, or turn cold and blue. ? If your splint is not waterproof: ? Do not let it get wet. ? Cover it with a watertight covering when you take a bath or a shower. ? Keep the splint clean. Managing pain, stiffness, and swelling ? If directed, put ice on the injured area. ? If you have a removable splint, remove it as told by your health care provider. ? Put ice in a plastic bag. ? Place a towel between your skin and the bag or between the splint and the bag. ? Leave the ice on for 20 minutes, 2?3 times per day. ? Move your fingers often to avoid stiffness and to lessen swelling. ? Raise (elevate) the injured area above the level of your heart while you are sitting or lying down. Activity ? Rest your wrist. Do not do things that cause pain. ? Return to your normal activities as told by your health care provider. Ask your health care provider what activities are safe for you. ? Do exercises as told by your health care provider. General instructions ? Take ehqj-nem-qejehne and prescription medicines only as told by your health care provider. ? Do not use any products that contain nicotine or tobacco, such as cigarettes and e-cigarettes. These can delay healing. If you need help quitting, ask your health care provider. ? Ask your health care provider when it is safe to drive if you have a splint. ? Keep all follow-up visits as told by your health care provider. This is important. Contact a health care provider if: ? Your pain, bruising, or swelling gets worse. ? Your skin becomes red, gets a rash, or has open sores. ? Your pain does not get better or it gets worse. Get help right away if: ? You have a new or sudden sharp pain in the hand, arm, or wrist. ? You have tingling or numbness in your hand. ? Your fingers turn white, very red, or cold and blue. ? You cannot move your fingers. This information is not intended to replace advice given to you by your health care provider. Make sure you discuss any questions you have with your health care provider. Document Released: 03/18/2015 Document Revised: 06/27/2018 Document Reviewed: 01/31/2017 Elsevier Patient Education ? 2019 [employer]. [facility] ED Patient Summaryon 022 ED Patient Summary [address] [address] Patient Discharge Instructions Person Information Name: GUERLINE ESCUDERO Age: 31 Years Arrival Date: 08/22/2021 17:15:06 Discharge Diagnosis: Wrist sprain Primary Care Physician: Rajat MCDONOUGH MD Provider Information Primary Provider: Jose Carlos Moyer DO [employer]:Kyree Phipps PA-C The exam and treatment you received in the Emergency Department were for an urgent problem and are not intended as complete care. It is important that you follow up with a doctor, nurse practitioner, or physician?s fundraising assistant for ongoing care. If your symptoms become worse or you do not improve as expected and you are unable to reach your usual health care provider, you should return to the Emergency Department. We are available 24 hours a day. GUERLINE ESCUDERO has been given the following list of patient education materials, prescriptions and follow-up instructions: Follow-up Instructions: With: Address: When: Jeremias Lewis [address] [place] [address] Business (1) In 3 days 08/25/2021 In the event that this physician does not participate in your insurance network, please consult with your insurance company to find a nearby participating provider. Patient Education Materials: Wrist Sprain, Adult A MESSAGE TO ALL PATIENTS REGARDING OPIOIDS PRESCRIPTION OPIOIDS: WHAT YOU NEED TO KNOW Prescription opioids can be used to help relieve dpqedvlo-yw-oghbmx pain and are often prescribed following a surgery or injury, or for certain health conditions. These medications can be an important part of the treatment but also come with serious risks. It is important to work with your healthcare provider to make sure you are getting the safest, most effective care. WHAT ARE THE RISKS AND SIDE EFFECTS OF OPIOID USE? Prescription opioids carry serious risks of addiction and overdose, especially with prolonged use. An opioid overdose, often marked by slowed breathing, can cause sudden . The use of prescription opioids can have a number of side effects as well, even when taken as directed: ? Tolerance?meaning you might need to take more of the medication for the same pain relief ? Physical dependence?meaning you have symptoms of withdrawal when a medication is stopped ? Increased sensitivity to pain ? Constipation ? Nausea, vomiting, and dry mouth ? Sleepiness and dizziness ? Confusion ? Depression ? Low levels of testosterone that can result in lower sex drive, energy, and strength ? Itching and sweating RISKS ARE GREATER WITH: ? History of drug misuse, substance use disorder, or overdose ? Mental health conditions (such as depression or anxiety) ? Sleep apnea ? Older age (65 years and older) ? Avoid alcohol while taking prescription opioids. Also, unless specifically advised by your health care provider, medications to avoid include: ? Benzodiazepines (such as Xanax or Valium) ? Muscle relaxants (such as Soma or Flexeril) ? Hypnotics (such as Ambien or Lunesta) ? Other prescription opioids KNOW YOUR OPTIONS Talk to your health care provider about ways to manage your pain that don?t involve prescription opioids. Some of these options may actually work better and have fewer risks and side effects. Options may include: ? Pain relievers such as acetaminophen, ibuprofen, and naproxen ? Some medication that are also used for depression or seizures ? Physical therapy and exercise ? Cognitive behavioral therapy, a psychological, goal-directed approach, in which patients learn how to modify physical, behavioral, and emotional triggers of pain and stress. IF YOU ARE PRESCRIBED OPIOIDS FOR PAIN: ? Never take opioids in greater amounts or more often than prescribed. ? Follow up with your primary health care provider. o Work together to create a plan on how to manage your pain. o Talk about ways to help manage your pain that don?t involve prescription opioids. o Talk about any and all concerns and side effects. ? Help prevent misuse and abuse o Never sell or share prescription opioids. o Never use another person?s prescription opioids. ? Store prescription opioids in a secure place and out of reach of others (this may include visitors, children, friends, and family). ? Safely dispose of unused prescription opioids: Find your community drug take-back program or your pharmacy mail-back program, or flush them down the toilet, following guidance from the Food and Drug Administration (www.fda.gov/Drugs/Re sourcesForYou). ? Visit www.cdc.gov/drugoverd ose to learn about the risks of opioids abuse and overdose. ? If you believe you may be struggling with addiction, tell your health career law clerk and ask for guidance or call [facility]?S National Helpline at 6-773-372-ENZI. v Source: [facility] (more content not included)... Normal [facility] Coding Summary.on 11-11-2020 Coding Summary. CODING DATE: 11/11/2020 FINAL [facility] DSC STATUS: Left Against Medical Advice PAYOR: Medicaid EAPG DESCRIPTION [id number] LEVEL I CONVENTIONAL RADIOLOGY ADMIT DX: REASON FOR VISIT DX: M25.561 Pain in right knee M25.562 Pain in left knee FINAL DX: PRINCIPAL: M25.561 Pain in right knee SECONDARY: M25.562 Pain in left knee Z87.39 Personal history of other diseases of the musculoskeletal system and connective tissue Z53.20 Procedure and treatment not carried out because of patient's decision for unspecified reasons PYMT PROC EAPG STAT DESCRIPTION DOCTOR NAME DATE NOTE: The code number assigned matches the documented diagnosis and / or procedure in the patient's chart. However, the narrative phrase printed from the coding software may appear abbreviated, or result in slightly different terminology. Coded By: Radha Olivas Date Saved: 11/11/2020 02:10 pm [facility] Consent To Leave AMAon 11-11 Consent To Leave AMA [id number] 1.00CD:127 [facility] ED Clinical Summaryon 2020 ED Clinical Summary [address] [address] ED Clinical Summary Person Information Name: GUERLINE ESCUDERO[place] Age: 30 Years : 1990 Sex: Female Language: Albanian PCP: Rajat MCDONOUGH MD Marital Status: Single Phone: [phone] Visit Id: Visit Reason: BILAT KNEE PAIN Speciality: Acuity: 3 Enc Type: Emergency Med Service: Emergency Arrival: 11/10/2020 20:31:34 Discharge: 11/10/2020 22:37:27 LOS: 000 02:06 Checkin: 11/10/2020 20:31:34 Checkout: 11/10/2020 22:37:27 Dispo Type: Left Against Medical Advice EVENTS: Event Name Event Status Request Date/Time Start Date/Time Complete Date/Time Arrive Complete 11/10/2020 20:31:34 11/10/2020 20:31:34 11/10/2020 20:31:34 Document Home Meds Request 11/10/2020 20:31:34 Triage Complete 11/10/2020 20:31:34 11/10/2020 20:41:54 11/10/2020 20:41:54 Registration Complete 11/10/2020 20:35:12 11/10/2020 20:35:12 11/10/2020 20:35:12 Reg Complete Request 11/10/2020 20:35:12 Reg Bed Request Complete 11/10/2020 20:35:12 11/10/2020 20:35:12 11/10/2020 20:35:12 Bed Assign Complete 11/10/2020 20:44:02 11/10/2020 20:44:02 11/10/2020 20:44:02 Dr Exam Complete 11/10/2020 20:44:02 11/10/2020 20:55:47 11/10/2020 20:55:47 RN Exam Complete 11/10/2020 20:44:02 11/10/2020 21:17:43 11/10/2020 21:17:43 Registration Complete 11/10/2020 20:55:47 11/10/2020 22:00:07 11/10/2020 22:00:07 X-Ray Complete 11/10/2020 21:48:48 11/10/2020 22:08:04 11/10/2020 22:29:26 Meds Admin Complete 11/10/2020 21:48:48 11/10/2020 22:32:25 Pending Labs Cancel 11/10/2020 21:49:59 11/10/2020 22:36:04 Lab Cancel 11/10/2020 21:49:59 11/10/2020 22:36:04 Wet Read Request 11/10/2020 22:29:26 Discharge Complete 11/10/2020 22:37:40 11/10/2020 22:37:40 11/10/2020 22:37:40 Transfer Complete 11/10/2020 22:37:40 11/10/2020 22:37:40 11/10/2020 22:37:40 ADDRESS: [address] [place] [id number] PHYS DOC NOTES: MEDICAL INFORMATION: Prescriptions Given: PATIENT EDUCATION INFORMATION: Instructions: Follow up: DIAGNOSIS: 1:Bilateral knee pain [facility] ED Note-Nursingon 11-11-2020 ED Note-Nursing Pt. 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 This nurse went in to try and educate pt. on why bloodwork was being ordered, and that we needed samples in order to proceed with her treatment. After multiple attempts to educate pt, pt. decided she still did not want blood drawn, and stated she wanted to sign out AMA. [facility] ED Note-Physicianon 11-12-19 ED Note-Physician Basic Information Time Seen: Sivan DUBON, Trey 11/10/2020 20:55 Chief Complaint c/o bilateral knee pain for the past week. Hx MS History of Present Illness Patient came here because of bilateral knee pain for last 1 week. Patient has history of MS. Patient is not complaining of any unusual activity. Patient does not have any trauma to her knees. Patient is describing her pain to be 4 out of 10 which gets worse with walking. Review of Systems Constitutional: no fever, no chills, no sweats, no weakness Skin: no Jaundice, no rash, no lesions, nopetechiae ENMT: no ear pain, no sore throat, no congestion, no hoarseness Respiratory: no shortness of breath, no cough, no orthopnea, no wheezing Cardiovascular: no chest pain, no palpitations, no edema Gastrointestinal: no nausea, no vomiting, no diarrhea, no GI bleeding Genitourinary: no dysuria, no hematuria, no discharge, no pain Frequency negative Musculoskeletal: no back pain, no trauma, bilateral knee pain Neurologic: no headache, no dizziness, no numbness, no weakness Psychiatric: no sleeping problems, no irritability, no mood swings/depression. Heme/Lymph: no bleeding tendency, no bruising tendency, no petechiae, no swollen nodes Allergy/Immunologic: no seasonal allergies, no food allergies, no recurrent infections, no impaired immunity Additional ROS info: Except as noted in the above Review of Systems and in the History of Present Illness all other systems have been reviewed and are negative or noncontributory. Physical Exam Vitals & Measurements HR: 88(Monitored) RR: 18 BP: 126/82 SpO2: 96% HT: 152.0 cm HT: 152 cm WT: 64.6 kg WT: 64.6 kg BMI: 27.96 General: alert, no acute distress Skin: warm, dry Head: no trauma, normocephalic Neck: Trachea midline, no adenopathy, no tenderness Eye: normal conjunctiva, sclera clear ENMT: TM's clear, oral mucosa moist, no pharyngeal erythema or exudate Cardiovascular: regular rate and rhythm, normal peripheral perfusion Capillary refill Less than 1 second Respiratory: Lungs CTA, respirations non labored Chest wall: no deformity. Gastrointestinal: soft, non distended, no tenderness, no guarding bowel sounds normal.Hepatosplenome kyler negative Genitourinary Normal Back: No tenderness, Normal ROM, Normal alignment. Extremities: no deformity, no trauma ,Edema none Color Normal, no swelling or tenderness in her knees Neurological: oriented x 4, LOC appropriate for age, CN II-XII intact, motor strength equal & normal bilaterally, sensation equal & normal bilaterally, speech normal Psychiatric: cooperative, affect appropriate for age, normal judgement, normal psychiatric thoughts. Medical Decision Making Did not wanted any blood work done and left AGAINST MEDICAL ADVICE. Assessment/Plan 1. Bilateral knee pain (M25.561: Pain in right knee) Orders: ketorolac, 30 mg = 1 mL, Injection, IV Push, Once, Stop date 11/10/20 21:48:00 EDT, STAT, Start date 11/10/20 21:48:00 EDT XR Knee 1 or 2 Views Left XR Knee 1 or 2 Views Right Disposition Plan Patient Discharge Condition Stable Discharge Disposition Left AGAINST MEDICAL ADVICE Discharge Prescription List Prescriptions No active prescription medications Follow-up No qualifying data available Problem List/Past Medical History Ongoing Fibromyalgia Nerve pain Scoliosis Thoracic back pain Historical Gestational HTN Group B streptococcus history of epilepsy None Procedure/Surgical History Cholecystectomy, gallbladder surgery. Medications Inpatient No active inpatient medications Home No active home medications Allergies Ultram (Vomiting) morphine (Hives) Social History Alcohol - Denies Alcohol Use, 12/17/2009 Current, 05/11/2018 Employment/School Unemployed, 05/14/2012 Exercise Exercise frequency: 1-2 times/week. Self assessment: Good condition. Exercise type: Walking., 05/14/2012 Home/Environment Lives with Significant other. Living situation: Home/Independent. Alcohol abuse in household: No. Substance abuse in household: No. Smoker in household: Yes. Injuries/Abuse/Neglec t in household: No. Feels unsafe at home: Yes. Safe place to go: Yes. Family/Friends available for support: Yes. Concern for family members at home: No. Major illness in household: No. Financial concerns: No. TV/Computer concerns: No., 05/14/2012 Nutrition/Health Type of diet: Regular. Regular, Caffeine intake amount: 3-4 glasses/day. Vitamin/Supplements: . Sleeping concerns: No. Feels highly stressed: No., 05/14/2012 Sexual Sexually active: Yes. Number of current partners 1. History of sexual abuse: No., 05/14/2012 Substance Abuse - Denies Substance Abuse, 12/17/2009 Current, 05/11/2018 Tobacco - Denies Tobacco Use, 12/17/2009 Never (less than 100 in lifetime) Tobacco Use:. Never Smokeless Tobacco Use:., 03/04/2020 Family History Cataract: Mother. Glaucoma: Father. Rh incompatibility affe (more content not included)... [facility] Comment on above: Result Comment: Elec tronically Signed By: RazTrey mitchell MD\.br\Date and Time Signed: 11/11/20 02:43 EDT ED Patient Education Noteon 11-11-2020 ED Patient Education Note [facility] ED Patient Summaryon 021 ED Patient Summary [place] [id number] Patient Discharge Instructions Person Information Name: GUERLINE ESCUDERO Age: 30 Years Arrival Date: 11/10/2020 20:31:34 Discharge Diagnosis: 1:Bilateral knee pain Primary Care Physician: Rajat MCDONOUGH MD Provider Information Primary Provider: Trey Finnegan MD [employer]:None The exam and treatment you received in the Emergency Department were for an urgent problem and are not intended as complete care. It is important that you follow up with a doctor, nurse practitioner, or physician?s fundraising assistant for ongoing care. If your symptoms become worse or you do not improve as expected and you are unable to reach your usual health care provider, you should return to the Emergency Department. We are available 24 hours a day. GUERLINE ESCUDERO has been given the following list of patient education materials, prescriptions and follow-up instructions: Follow-up Instructions: In the event that this physician does not participate in your insurance network, please consult with your insurance company to find a nearby participating provider. Patient Education Materials: A MESSAGE TO ALL PATIENTS REGARDING OPIOIDS PRESCRIPTION OPIOIDS: WHAT YOU NEED TO KNOW Prescription opioids can be used to help relieve rwhajqcq-qg-xatqst pain and are often prescribed following a surgery or injury, or for certain health conditions. These medications can be an important part of the treatment but also come with serious risks. It is important to work with your healthcare provider to make sure you are getting the safest, most effective care. WHAT ARE THE RISKS AND SIDE EFFECTS OF OPIOID USE? Prescription opioids carry serious risks of addiction and overdose, especially with prolonged use. An opioid overdose, often marked by slowed breathing, can cause sudden . The use of prescription opioids can have a number of side effects as well, even when taken as directed: ? Tolerance?meaning you might need to take more of the medication for the same pain relief ? Physical dependence?meaning you have symptoms of withdrawal when a medication is stopped ? Increased sensitivity to pain ? Constipation ? Nausea, vomiting, and dry mouth ? Sleepiness and dizziness ? Confusion ? Depression ? Low levels of testosterone that can result in lower sex drive, energy, and strength ? Itching and sweating RISKS ARE GREATER WITH: ? History of drug misuse, substance use disorder, or overdose ? Mental health conditions (such as depression or anxiety) ? Sleep apnea ? Older age (65 years and older) ? Avoid alcohol while taking prescription opioids. Also, unless specifically advised by your health care provider, medications to avoid include: ? Benzodiazepines (such as Xanax or Valium) ? Muscle relaxants (such as Soma or Flexeril) ? Hypnotics (such as Ambien or Lunesta) ? Other prescription opioids KNOW YOUR OPTIONS Talk to your health care provider about ways to manage your pain that don?t involve prescription opioids. Some of these options may actually work better and have fewer risks and side effects. Options may include: ? Pain relievers such as acetaminophen, ibuprofen, and naproxen ? Some medication that are also used for depression or seizures ? Physical therapy and exercise ? Cognitive behavioral therapy, a psychological, goal-directed approach, in which patients learn how to modify physical, behavioral, and emotional triggers of pain and stress. IF YOU ARE PRESCRIBED OPIOIDS FOR PAIN: ? Never take opioids in greater amounts or more often than prescribed. ? Follow up with your primary health care provider. o Work together to create a plan on how to manage your pain. o Talk about ways to help manage your pain that don?t involve prescription opioids. o Talk about any and all concerns and side effects. ? Help prevent misuse and abuse o Never sell or share prescription opioids. o Never use another person?s prescription opioids. ? Store prescription opioids in a secure place and out of reach of others (this may include visitors, children, friends, and family). ? Safely dispose of unused prescription opioids: Find your community drug take-back program or your pharmacy mail-back program, or flush them down the toilet, following guidance from the Food and Drug Administration (www.fda.gov/Drugs/Re sourcesForYou). ? Visit www.cdc.gov/drugoverd ose to learn about the risks of opioids abuse and overdose. ? If you believe you may be struggling with addiction, tell your health career law clerk and ask for guidance or call [facility]S National Helpline at 5-599-837-PKVY. v Source: US Department of Health and Human Services/Center for Disease Control & Prevention [facility] Medications Given: Medication Dose Route No medications (more content not included)... [facility] XR Knee 1 or 2 Views Lefton 11-11-2020 XR Knee 1 or 2 Views Left Exam Date/Time: 11/10/2020 22:29 EDT Reason for Exam: Pain, Non Traumatic Report IMPRESSION: NEGATIVE LEFT KNEE. CLINICAL HISTORY: Pain, Non Traumatic. COMMENT: 2 views. The bones of the left knee appear normal without evidence of fracture or dislocation. FINAL REPORT Dictated: 11/11/2020 8:14 am Jeremy Reno M.D. Signed (Electronic Signature): 11/11/2020 8:14 am Signed by: Jeremy Reno M.D. Transcribed by: BEN Technologist: ALDAIR [facility] XR Knee 1 or 2 Views Righton 11-11-2020 XR Knee 1 or 2 Views Right Exam Date/Time: 11/10/2020 22:29 EDT Reason for Exam: Pain, Non Traumatic Report IMPRESSION: NEGATIVE RIGHT KNEE. CLINICAL HISTORY: Pain, Non Traumatic. COMMENT: 2 views. The bones of the right knee appear normal without evidence of fracture or dislocation. FINAL REPORT Dictated: 11/11/2020 8:15 am Jeremy Reno M.D. Signed (Electronic Signature): 11/11/2020 8:15 am Signed by: Jeremy Reno M.D. Transcribed by: BEN Technologist: ALDAIR [facility] Consent for Treatmenton 10-27 Consent for Treatment [id number] .[id number]:127 [facility] Summary Purpose Family History No Family History Records Found Advance Directives No Advanced Directives Records Found Additional Source Comments INFORMATION SOURCE (unrecogn ized section and content) DATE CREATED AUTHOR 10/22/2021 [facility] FOR RECORDS PERTAINING TO PATIENTS WHO ARE OR HAVE BEEN ENROLLED IN A CHEMICAL DEPENDENCY/SUBSTANCEABUSE PROGRAM, SOME INFORMATION MAY BE OMITTED. This clinical summary was aggregated from multiple sources. Caution should be exercised in using it in the provision of clinical care. This summary normalizes information from multiple sources, and as a consequence, information in this document may materially change the coding, format and clinical context of patient data. In addition, data may be omitted in some cases. CLINICAL DECISIONS SHOULD BE BASED ON THE PRIMARY CLINICAL RECORDS. [facility]. provides no warranty or guarantee of the accuracy or completeness of information in this document.
--- NOTE | 2024-08-09 12:03 | ED.NAVMDI1 ---
HPI - Nausea/Vomiting/Diarrhea General Chief complaint: Nausea/Vomiting/Diarrhea Stated complaint: NAUSEA Time Seen by Provider: 08/09/24 11:54 Mode of arrival: walk-in History of Present Illness HPI Narrative: 34-year-old female presents to the emergency department for nausea and vomiting which started last night. No diarrhea. No fever or hematemesis. No known ill contacts. Related Data Previous Rx's ?Medication ?Instructions ?Recorded ondansetron 4 mg disintegrating 4 mg PO Q6H PRN nausea and 08/09/24 tablet vomiting #20 tabs Allergies Allergy/AdvReac Type Severity Reaction Status Date / Time No Known Drug Allergies Allergy Verified 03/28/24 18:15 Review of Systems ROS Narrative A ten point review of systems is negative except as noted above. PFSH PFSH Social History Little interest or pleasure in doing things: not at all Feeling down, depressed, or hopeless: not at all Exam Narrative Exam Narrative: Nurses note and vital signs reviewed and patient is not hypoxic. General: The patient appears no apparent distress. Skin: Warm, dry, no pallor noted. There is no rash noted. Head: Normocephalic, atraumatic Eye: Normal conjunctiva, no drainage Ears, Nose, Mouth, and Throat: oral mucosa is moist. Nares patent. Cardiovascular: Regular Rate and Rhythm Respiratory: Patient is in no distress, no accessory muscle use, lungs are clear to auscultation, no wheezing, rales or rhonchi GI: Soft and no appreciable tenderness. No distention Musculoskeletal: The patient has no evidence of calf tenderness, no pitting edema, symmetrical pulses noted bilaterally Neurological: Awake and alert Psychiatric: Cooperative Constitutional Vital Signs, click to edit/add: Last Vital Signs Temp 99.0 F 08/09/24 11:56 Pulse 87 08/09/24 14:27 Resp 18 08/09/24 14:27 BP 138/67 08/09/24 14:27 Pulse Ox 97 08/09/24 14:27 O2 Del Method Room Air 08/09/24 11:56 Course Vital Signs Vital signs: Vital Signs Temperature 99.0 F 08/09/24 11:56 Pulse Rate 89 08/09/24 11:56 Respiratory Rate 18 08/09/24 11:56 Blood Pressure 141/86 08/09/24 11:56 Pulse Oximetry 99 08/09/24 11:56 Oxygen Delivery Method Room Air 08/09/24 11:56 Temperature 99.0 F 08/09/24 11:56 Pulse Rate 87 08/09/24 14:27 Respiratory Rate 18 08/09/24 14:27 Blood Pressure 138/67 08/09/24 14:27 Pulse Oximetry 97 08/09/24 14:27 Oxygen Delivery Method Room Air 08/09/24 11:56 MDM - Nausea/Vomiting/Diarrhea MDM Narrative Medical decision making narrative: The patient was given IV fluids and IV Zofran and Phenergan. She is feeling improved and is able to tolerate p.o. liquids. Incidental findings of left breast mass and left ovarian cyst were found on CAT scan and pelvic ultrasound and follow-up as advised. She was referred to Dr. Stewart, she does not have an COMMUNICATION AND OUTREACH MANAGER physician. The importance of follow-up for these 2 matters was discussed thoroughly. Differential Diagnosis Differential diagnosis: Likely food poisoning, gastroenteritis, dehydration and other (Diverticulitis, acute appendicitis, colitis) Lab Data Attestation: I reviewed the patient's lab results. Labs: Lab Results 08/09/24 Range/Units 12:28 WBC 20.4 H (4.0-11.0) 10^3/uL RBC 5.12 (4.20-5.40) 10^6/uL Hgb 15.8 (12.0-16.0) g/dL Hct 46.0 (36.0-48.0) % MCV 89.8 (81.0-99.0) fL MCH 30.9 (26.7-34.0) pg MCHC 34.3 (29.9-35.2) g/dL RDW 12.8 (11.0-15.0) % Plt Count 599 H (150-450) 10^3/uL MPV 10.0 (9.5-13.5) fL Seg Neuts % (Manual) 96.0 H (43.0-75.0) Lymphocytes % (Manual) 2.0 L (20.5-60.0) % Monocytes % (Manual) 2.0 (1.7-12.0) % Eosinophils % (Manual) 0.0 L (0.9-7.0) % Basophils % (Manual) 0.0 L (0.2-2.0) % Neutrophils # (Manual) 19.58 H (1.4-6.5) 10^3/uL Lymphocytes # (Manual) 0.40 L (1.20-3.80) 10^3/uL Monocytes # (Manual) 0.40 (0.30-0.80) 10^3/uL Eosinophils # (Manual) 0.00 (0.00-0.70) 10^3/uL Basophils # (Manual) 0.00 (0.00-0.10) 10^3/uL Sodium 149 H (136-145) mmol/L Potassium 3.0 L (3.5-5.1) mmol/L Chloride 106 (98-107) mmol/L Carbon Dioxide 27.4 (21.0-32.0) mmol/L Anion Gap 18.6 BUN 21.0 H (7.0-18.0) mg/dL Creatinine 1.72 H (0.55-1.02) mg/dL Est GFR ( Amer) 41 L (>=60 mL/min/1.73m^2) Est GFR (Non-Af Amer) 34 L (>=60 mL/min/1.73m^2) BUN/Creatinine Ratio 12.2 Glucose 176 H (74-106) mg/dL Calcium 10.1 (8.5-10.1) mg/dL Serum HCG, Qual Negative (NEGATIVE) Imaging Data CT scan - abdomen: Radiologist's impression: ITS Impressions Abdomen/Pelvis CT 08/09/24 12:52 IMPRESSION: Right adnexal cysts, complex cyst with septation or abscess. Recommend emergent ultrasound pelvis. Left breast mass measuring 1.5 cm. Recommend outpatient diagnostic left mammogram and left breast ultrasound. Electronically authenticated by: MAXWELL ANDUJAR Date: 08/09/2024 14:29 Transvaginal US 08/09/24 14:35 IMPRESSION: 1. Slightly limited examination due to patient nausea and inability to complete the entire examination. 2. Large 5.8 cm complex right ovarian cyst. No ovarian torsion at this time. 3. Left ovary was not seen (patient discontinued examination prior to completion). Electronically authenticated by: NIURKA HUGGINS Date: 08/09/2024 15:50 Discharge Plan Discharge Chief Complaint: Nausea/Vomiting/Diarrhea Clinical Impression: Nausea & vomiting, Ovarian cyst, Breast mass, left Patient Disposition: Home, Self-Care Time of Disposition Decision: 16:47 Condition: Good Mode of Transportation: Private Vehicle Prescriptions / Home Meds: New ondansetron 4 mg tablet,disintegrating 4 mg PO Q6H PRN (Reason: nausea and vomiting) Qty: 20 0RF Print Language: Gabonese Instructions: Ovarian Cyst (ED), Acute Nausea and Vomiting (ED), Breast Mass (ED) Additional Instructions: Follow-up with Dr. Stewart regarding the ovarian cyst and the breast mass Referrals: Juan Diego Stewart DO [Physician] - 1 week Physician,Non-Staff, [Primary Care Provider] - 1 week
[2024-08-09] MEDS: ONDANSETRON PF 4 MG/2 ML VIAL IV ×2 (12:25→13:14)
[2024-08-09] MEDS: 0.9 % SODIUM CHLORIDE 1,000 ML 1000 ML IV (12:25)
[2024-08-09 12:32] LABS: Hemoglobin 15.8 g/dL (12.0-16.0); Mean Corpuscular HGB Conc 34.3 g/dL (29.9-35.2); Mean Corpuscular Hemoglobin 30.9 pg (26.7-34.0); Mean Corpuscular Volume 89.8 fL (81.0-99.0); Platelet Count 599 10^3/uL (150-450); Red Blood Count 5.12 10^6/uL (4.20-5.40); Red Cell Distribution Width 12.8 % (11.0-15.0); White Blood Count 20.4 10^3/uL (4.0-11.0)
[2024-08-09 12:43] LABS: Anion Gap 18.6; BUN Creatinine Ratio 12.2; Calcium 10.1 mg/dL (8.5-10.1); Carbon Dioxide 27.4 mmol/L (21.0-32.0); Chloride 106 mmol/L (98-107); Estimated GFR (African America 41 (>=60 mL/min/1.73m^2); Estimated GFR (Non-African Ame 34 (>=60 mL/min/1.73m^2); Glucose 176 mg/dL (74-106); HCG Qualitative NEGATIVE (NEGATIVE); Internal Control Within Normal Limits; Sodium 149 mmol/L (136-145)
[2024-08-09 12:46] LABS: Segmented Neut Absolute Manual 19.58 10^3/uL (1.4-6.5)
--- NOTE | 2024-08-09 12:52 | CT_ITS ---
The [address] [address] Patient Name: GUERLINE ESCUDERO MRN: [id number] date: 1990 Sex: F Assigned Patient Location: ER Current Patient Location: ER Accession/Order Number: [id number] Exam Date: 08/09/2024 13:15 Report Date: 08/09/2024 14:29 At the request of: TRISTAN BURNHAM Procedure: CT abdomen pelvis w con CT ABDOMEN AND PELVIS WITH CONTRAST HISTORY: Abdominal pain. Nausea and vomiting. Leukocytosis. COMPARISON: None. METHOD: Dose reduction techniques were achieved by using automated exposure control and/or adjustment of mA and/or kV according to patient size and/or use of iterative reconstruction technique. FINDINGS: The lung bases are clear. There is no intrahepatic mass or intrahepatic biliary ductal dilatation. The pancreas and stomach are normal appearing. The spleen is normal in size. The adrenal glands are normal appearing. There is a left breast mass measuring 1.5 cm. There are no solid renal mass or hydronephrosis. There is no bowel wall thickening of the appendix is normal appearing. There are right adnexal cystic lesions or a single right adnexal cyst with septation or complex fluid collection. There is no evidence of lymphadenopathy. There is no free fluid. There is no free air. There are no acute bony abnormality. CT/CT abdomen pelvis w con IMPRESSION: Right adnexal cysts, complex cyst with septation or abscess. Recommend emergent ultrasound pelvis. Left breast mass measuring 1.5 cm. Recommend outpatient diagnostic left mammogram and left breast ultrasound. Electronically authenticated by: MAXWELL ANDUJAR Date: 08/09/2024 14:29
[2024-08-09 14:27] VITALS: BP 138/67; PULSE 87; O2SAT 97
--- NOTE | 2024-08-09 14:35 | US_ITS ---
The [address] [address] Patient Name: GUERLINE ESCUDERO MRN: [id number] date: 1990 Sex: F Assigned Patient Location: ER Current Patient Location: ER Accession/Order Number: [id number] Exam Date: 08/09/2024 15:10 Report Date: 08/09/2024 15:50 At the request of: TRISTAN BURNHAM Procedure: US pelvis transvaginal EXAMINATION: US pelvis transvaginal HISTORY: CT reading emergent US for cyst vs abscess COMPARISON: No relevant comparison available. TECHNIQUE: Transabdominal and/or transvaginal sonographic examination was performed as indicated by examination type. FINDINGS: UTERUS: Normal size and appearance. Uterus size: 7.6 x 4.2 x 3.5 cm ENDOMETRIUM: Normal homogeneous appearance. Endometrial thickness: 6 mm RIGHT OVARY: Contains a 5.8 cm multiseptated cyst. Duplex Doppler demonstrates normal waveform and flow; resistive index 0.5. Ovary size: 5.5 x 4.6 x 4.4 cm LEFT OVARY: Not seen. CUL-DE-SAC: Unremarkable. No significant free fluid. BLADDER: Unremarkable. OTHER: None. US/US pelvis transvaginal IMPRESSION: 1. Slightly limited examination due to patient nausea and inability to complete the entire examination. 2. Large 5.8 cm complex right ovarian cyst. No ovarian torsion at this time. 3. Left ovary was not seen (patient discontinued examination prior to completion). Electronically authenticated by: NIURKA HUGGINS Date: 08/09/2024 15:50
[2024-08-09] MEDS: PROMETHAZINE HCL 12.5 MG in 0.9 % SODIUM CHLORIDE 50 ML 202 MG IV (16:19)
== END 2024-08-09 17:07 | disposition home or self-care (01) ==
PROVIDERS: Emergency Provider Emergency Medicine
DX: R11.2 Nausea with vomiting, unspecified (principal); N83.291 Other ovarian cyst, right side; N63.20 Unspecified lump in the left breast, unspecified quadrant
CPT/HCPCS: 36415; 74177; 76830; 80048; 84703; 85007; 85027; 96361; 96365; 96375; 96376; 99285; J2405; J2550; Q9967

== ENCOUNTER 2025-04-01 19:05 | Emergency (ER) | payer MEDICAID, SELFPAY ==
[2025-04-01 19:13] VITALS: BP 126/91; PULSE 88; TEMP 36.7; O2SAT 100; BMI 25.4
--- OUTSIDE RECORDS SUMMARY | 2025-04-01 19:13 | XMS_ITS | Clinical Summary ---
Author Organization [email or web address] [facility] Address [facility] [place] [address] [place] [address] Care Team Providers Care Skip Tracer Name Role Phone Unavailable Primary Care Provider Unavailabl e Allergies No known active allergies Medications No known medications Active Problems Problem Noted Date Diagnosed Date MS (multiple sclerosis) 04/15/2023 Heroin abuse 04/15/2023 Family History Medical History Relation Name Comments Colon cancer Father Diabetes Maternal Grandfather Heart disease Maternal Grandfather Diabetes Maternal Grandmother Heart disease Maternal Grandmother Heart disease Mother Relation Name Status Comments Father Maternal Grandfather Maternal Grandmother Mother Social History Tobacco Use Types Packs/Day Years Used Date Smoking Tobacco: Every Day Cigarettes 0.5 3 Started: 04/15/2022 Alcohol Use Standard Drinks/Week Comments Not Currently 0 (1 standard drink = 0.6 oz pur e alcohol) PHQ-2 Answer Date Recorded Total Score 0 04/15/2023 Hunger Screening Answer Date Recorded Within the past 12 months we worried whether our food would run out before we got money to buy more. Never True 04/15/2023 Within the past 12 months th e food we bought just didn't last and we didn't have money to get more. Never True 04/15/2023 Comments Unknown Sex and Gender Information Value Date Recorded Sex Assigned at Not on file Legal Sex Female 12:32 PM EDT Gender Identity Not on file Sexual Orientation Not on file Last Filed Vital Signs Vital Sign Reading Time Taken Comments Blood Pressure 118/72 04/15/2023 2:08 PM EDT Pulse 94 04/15/2023 2:08 PM EDT Temperature 37.3 C (99.1 F) 04/15/2023 2:08 PM EDT Respiratory Rate 16 04/15/2023 2:08 PM EDT Oxygen Saturation 99% 04/15/2023 2:08 PM EDT Inhaled Oxygen Concentration - - Weight 68.9 kg (152 lb) 04/15/2023 2:08 PM EDT Height 152.4 cm (5') 04/15/2023 2:08 PM EDT Body Mass Index 29.69 04/15/2023 2:08 PM EDT Plan of Treatment Health Maintenance Due Date Last Done Comments Tobacco Screening 2001 DTaP,Tdap and Td Vaccines (1 - Tdap) 2008 Pap Smear 2010 Adult BMI Screening 04/15/2024 04/15/2023 Depression Screening 04/15/2024 04/15/2023 Influenza Vaccine 03/29/2025 Medical Devices Not on file Insurance [employer]
--- OUTSIDE RECORDS SUMMARY | 2025-04-01 19:16 | XMS_ITS | CCD ---
Author Organization [employer] CIVIL ENGINEERING TECHNICIAN [facility] Results Test Name Value Interpretation Reference Range Facil ity Prescriptions/Work Noteson 0 09-26-2021 Prescriptions/Work Notes [id number]#1 .00CD:127 [facility] RAD - Preliminary Cat Scan R eporton 09-26-2021 RAD - Preliminary Cat Scan Report [id number]#1 .00CD:127 Normal [facility] Comment on above: Other Comment: wrong [...] MD, V. Transcribed by: BEN Technologist: VARUN [facility] Coding Summary.on 08-22-2021 Coding Summary. CD:[id number] G h0bWw+PGhlYWQ+PP0WADK fY36ndNSieJ5IT3zKGC0I EJNRARXFLY9WNH8mlDZ1X ChsX3GwjxHq BgurrCYxSC70TIl1UQE4k TktAClqpO9zkGDeO2t0Gm VlOI43gW76BDyiLSNjXuT 3LjZpbjsgbWFy N7sgNgGefWAnPcf+PHRhY mxlIHdpZHRoPScxMDAlJy XxjQlcKX6nEs9fYRJaSYR vbGxhcHNlOiBj j9omKUDgFKmyVQ3taCubJ 9TwdPU9ENNbc4f8Sg70aC I+MDHkHTM6rOhmAUkxo50 9CwGfv8trAPZ0 eEGeCSrsVDB6K00xv9H4D ZIzCQVnHLM7aUG0xI5vyN uwbmvkG6IhgLNhGaE4LZP 0oAGibH6xzJew dmifzI6lUkq+Q15BLB1KY IHKRA9DKgp9F5EvZglljY I+EB36WVDzLF35hFChvNH cx7dpeSg0BbIc SXJuIDD5dFweTRodo7BvF ZUbI02juGMpk0Z7WSZrrX ycvTFcMwZzuBN3tF3uAKr uvbjzn6dmfxrn Rmyov5yzld55mZ05J52jF QydLVOrNRY4POMiTVPlkU fotl7ueV8wCd4+YZbgv6z so5nadBd0VoDp ZUUscoEfvVpoAVH5c9GjJ j84H9HwkFepn7ToUxs9mb 71jGBjg0Y1qNI7LGboFGV pkG1zIWtlSbN7 LKQxDdVaeS83hTHnQYypT c5mpTzjhYugKU5iXQAdat zhLSShgX6xZZRarCUohZd hYI5iTKQgwcde d885BpMwNEL0TLSfaVFfN 3FrjN6nQcSsFTTvKLSvV9 XiyJRyFWnmQ399ROwdRyK 3VKDuydVmR2Sm TEZhrBqvUzD6s6Z7Ti2Vx 2XmyfywCGG4TYjfWRKeWm V4ZfAqUwZ8R0BzHaz4WTD ehLewPT8mQ5Vf JZUrnepbztxheLR6EUFgQ LZznQ15gGUsGZuxMw1lp8 E8n109IWRhRIRswJ92Fd5 udDogMTBwdCBU gX2xpbczz1ihpimzOkPrE CMgKOl0ZMg4KFVhqDtnQb XoVPE7YnK6FMY5pSAlbC0 loBnrmoyscX2m Oyc+Z02ofQ8qMZS1DSK1b uvuUQMcotFoRQ68NV06G3 RyPjwvdGFibGU+PGRpdiB urLzqEU3sPdSh f2reo2RuKEzfV6CkPRZtJ DsiEir4ZMQuLYG7tEN9bM 9lVWEuDTbqj1Q5xID1Z6U lyvMprr6xd6jo HNTvUIypK00nhIQfw9Q7C WHpeRW7GXLidUggGlEnpT 93Oyc+NRBiuLvis1AcUtm tr1sbx9wxsRe0 WtGyKJQtebPwfDcxZOV0i 8KeTa11H63nPGxkFCWcOF MjGGDzIUZyvGggen6wjI4 wIi8+PGNvbCB3 wZX0pZ0kPVVkGbH7UFhcH 334YhKntPDkSfklo6pyk5 cwvKg0PwRbIFMzuqZhzTe eULS4p2YsUc00 Y72hWOihRKFuVYPmGKWcT UVzkQlxgq6ztN9dKw0+PC 9bs7ogte43xT84nKS+PHR nYER3dQscQKho HUGhiO3wRAnfItK0NEUeP oEtlA72jWEcVLkwYb9npI ibqXfxXW7wUDNgjoiar13 3BeBgu9kiYEOf aCFkDJntOGU6C12kw8D7Q VDeZOMqANS0rYP3lO0wpX lnbjogbGVmdDsgdmVydGl vTNaxSBvaL472 IHRvcDsnPlBhdGllbnQgT bHaVMl5G0XkZyi2OAHjpL ffGB4wfNBzAQgmQz8sfBj cpEcoUI1qLLWs mwuuf453PbYxn7ajXZGtu GYwLMfmRXU4J31ff2E4NF BtWNRaOIM2pLA2rP0tdOy nbjogbGVmdDsg uwOdlOtbHRbaCOhsA556M HRvcDsnPkJpcnRoIERhdG A1CH47CV51jDJzn6G6uLZ 6Y8FoNWYwkzij ofbjrWB6HDVeLAEcmZ71R b4nvZwaIx1eFUBzRFZ2XS MkjTOpE9EpnF0uYwCzPOX pLIYrD8SuyJLf PAzeF149MPmlPyG2ZQYhu iUhG6YyQSQvvHkxOeH6u9 E1Ni1UY7L5ND92KJ87wPR jx4B7aTM4A1Pp EOHmllclgwxpqTQ8NWIrJ IUqhU87Rf6znGhxUn7lUR PrRDS7FYDkuXKlV9SkiB7 yOiAjMDAwMDAw P9RepGEmAXooK450OFkgS jR2JIYiuiSfK2YzBCIsiM hwOkM7c1I8Ee5XRAu3UY1 9MH10rXCch5B8 fLT9Z3BaNHVehbhgmpjqo KU0GGDaDGQjvK70Ge0hbM ooAi1xEMDnRVK8ETHkdKG cA5DvsY8qPlGs XYKmPTXvC5FxwDWiDCuqN 185IBkbCnK5JZIiytWgX8 DtUBZhkJueJiQ7e8N6Sk3 LQFDwCL16SXX3 sVN8SE48GV22K6OwKrbnn GFibGU+PHRhYmxlIHdpZH RoPScxMDAlJyBzdHlsZT0 cTr4xNBDgTHWf pVpkeGKlUzFes1edKVMnB UqgSO8avBnbI7PidAY5KB Bnw5b1Ke84E25xT8FwhKG +PDOubDG7xJE3 cT4uBmLhAiO6FHyaC407Y mCanOFiMdcan9vrs5lbgQ y2EtU0CJJixdTbkNbwSLE 8f8LgAv27M73y IHdpZHRoPSIxNSUiIHZhb Abrti1qtB9iVf0+PGNvbC O1nIQ7wC2wYvWkKiX7EDg kZ668LqYgrAOd Qdtez2atc2xtyYr1KpPbE WObmlVisHzxTLW9m4UdHb 90F1UwiMffs9PuEsc9an1 5eMEfb6P2tCC6 E5PeLBQghuzjdVSilOlgO B2dHRIyuhpqODEobS2nBA GnE0v1VkIvFvL0UZbvC6V sfaB2CRLxgSPe NOcxWZJ7Q59do1P9UFLjT QWtWPO4oMZ7fC0cuRtrqb ogbGVmdDsgdmVydGljYWw dQUxlV233XIYb cLjjZQTqgX4qBOGqzYHtt JzhCT4pRVApijdnDoISQs JEXoeuZB2TFKsdLItbhIM +BTEwULY3nDat HWjoKIMhvJ2zGXDzB4h8B oPaGzZ1NDgjA6BnJZXmsj pdBa33sW5vHxToEuR3ICh xP4MauvR7ILQp rXHlAFmiVNQ0O98lf1W2K BXtGOTzMWG6uOE6lW0gqT lnbjogbGVmdDsgdmVydGl fUCkpKYcgK516 UIEixUnpBqF9ClE1UeH1O Rx8V4OkBrf8XQZggYojHG 9rrNYfHUyrFk9lqMhbhWo wMZ8mOURhdfiy LRHhoA2iRZZslNWfpFgcB V2jSRQwndyzt217JhHmXS W4OCLpiMJdD6NhoO4fEgU wRZHoWIXtQ1Wj kGPfNWlfT675AVeqItF5F IMlctAzE8TtNMBbmCpgVt N6i7G4Vd9aCoLTPHBwrrz vdGQ+PHRkIHN0 kNhoTYmsGSJmpB1oZVSyZ 1n7IpZdZbF9BCtsY4YfEV QuvljiYc59aR5vTsEkDuF 4TMocV6WojdB6 FOOmuEQaNSwyONV2Z20ck 7E6DNGzCFWqAEU6nLA7mV 1hbGlnbjogbGVmdDsgdmV ydGljYWwtYWxp J336XXMlpNciPxCboMPaF TwvdGQ+TDAwLMD1rLroEX vaOIWvxV3aOAUtZ8k3UeV lGpA0ZNykH0Qt KFRmjbuaPz52tK9kYcUzJ oU1BGhwE0UwqwI5PKLwtR EtBMbcGTJ1H81hm5V2TLS iQYNdWWH8wEN2 fC6wzZbkyzdyrFDrlUigj aEanCaaOOpzAYhyM980RP ChtTepUhDjMJGvNK0kuMy vdGQ+HO25an59 T7YtBbrbNcc6JJGhRUQ9v IX7zL9dUVKuPJrht6B4nQ C5E1AgczWces1yu4utUUH eAMxwG23hgCQy k9I4LMIgfHX5WOTkqOwwF fOvtI25Usm+PGNvbGdyb3 NkNqcgp3dct6lutTo2LqM wJSIgdmFsaWdu GSP7x3MlRo41D45eFOcjS HRoPSIzMCUiIHZhbGlnbj 7wtK6lVe6+JAPqqAH2tNY 8qE9hRdIpUsR9 GWjuM435MmBrwLUcIusll 8qnk0ukvOu1HtBkZAOhnc GseAkgAHV1p8NxTb79C1N qmGzyj1TeLet0 vc89aWExk5V3gOH4T9XbB IXclfusyOZdvHgiBM8vSW OqxwdzEOKsdA4jJSOgZ1d 0HlWkSlA7MIgf V1CrwoJ4COJyzFTlBIYoj OZJeJ7rmykuu7lzniyrWn WfMLYbFGz1EJr3NVDwpJv qQeFoQFS9UlT3 WXO2nVNumR6rfSgdlbanu G9wOyc+EDt4b3tsxHMcMV 6mwBR3NV90WX02nWOhk6T 1sTV3Y1DjRTWg aqzlfyrumIE9PJLsOZZxg E78Cs1vqPalFm6oNKCiPP I4WZArtGRyJ1MgrJ8qEdD sPVAiLSOgW2Uw lWDhTAfvQ497ENweAxO5D NLiozEhV4GjEYYokQsgLx G4n2A9Pj3DBC53EH25HS5 0jRDfz5M7lID7 B6OuFFZijwwaxpovhOM8E ABrDSFpdB01Ls6mrQnuUi 2hVVFzQNN2UDKqkIUfR6M leS8kRlCnEBBk LBKhN1EfvACfQDpwI768P InjGcN3PPYqdmZbQ2PzGI DqbHehAxL5k4E3Dd9TXw8 9VX07XH14mVGq r5F6sKO5G0EuXHHfbecbb ytjjXJ9KZYsLEJngV56Ki 0onYrwNx8bPNFfACK6TCW ydDHkQ5OhjQ8c KbYlJNSaBKPuM0AtzKXuQ OjoG501QQqaFtS2IEQrwu OuL0KbFBDycLduVqE5x8D 4Lo7JGPpmork3 Q1LcUpnabZE+SG85XPGzP K42tCQboTCwd2tftNh3Og CdSQGcTHV8rSydBWwwl3D oKODtL89heIDv c2U6 (more content not included)... Normal [facility] Consent for Treatmenton 07-30 Consent for Treatment [id number] .00CD:127 Normal [facility] Discharge Instructionson Discharge Instructions [id number] .00CD:127 Normal [facility] ED Clinical Summaryon 2021 ED Clinical Summary [place] [id number] ED Clinical Summary Person Information Name: GUERLINE ESCUDERO/[facility] Age: 31 Years : 1990 Sex: Female Language: [place] Citizen PCP: Rajat MCDONOUGH MD Marital Status: Single Phone: [phone] Visit Id: Visit Reason: Wrist pain-swelling; left [...] 08/22/2021 18:05:55 08/22/2021 18:05:55 08/22/2021 18:05:55 ADDRESS: [address] [place] [phone] PHYS DOC NOTES: MEDICAL INFORMATION: Prescriptions Given: New Medications [facility], [address], [place] [id number], [phone] naproxen (Naprosyn 500 mg Tab) 1 Tablets By Mouth 2 times a day. Refills: 0. PATIENT EDUCATION INFORMATION: Instructions: Wrist Sprain, Adult Follow up: With: Address: When: Jeremias Lewis [address] [place] [id number] Business (1) In 3 days 08/25/2021 DIAGNOSIS: Wrist sprain Normal [facility] ED Note-Physicianon 08-22-19 ED Note-Physician Basic [...] symptoms worsen or change. Assessment/Plan Wrist sprain (S63.164A: Unspecified sprain of unspecified wrist, initial encounter) [...] Jeremias Lewis In 3 days 08/25/[address] [place] [address] [facility] (1) Additional Instructions: Patient Education Wrist Sprain, Adult Attestation Patient seen and evaluated by the physician assistant professor of biology. Attending physician was present in the emergency department and supervised care. This visit was performed by both the physician and an APC. I performed all aspects of the MDM as documented. This report was transcribed using voice recognition software. Every effort was made to ensure accuracy, however, inadvertently computerized computer hardware technician mistakes may be present. Appropriate healthcare PPE [...] Yes. Family/Frie (more content not included)... Normal [facility] Comment on above: Result Comment: Elec [...] health care provider. General instructions ? Take kfui-ecr-uhtccat and prescription medicines only as told by [...] Reviewed: 01/31/2017 Elsevier Patient Education ? 2019 [employer]. Normal [facility] ED Patient Summaryon 022 ED Patient Summary [address] [address] Patient Discharge Instructions Person Information Name: GUERLINE ESCUDERO Age: 31 Years Arrival Date: 08/22/2021 17:15:06 Discharge Diagnosis: Wrist sprain Primary Care Physician: Rajat MCDONOUGH MD Provider Information Primary Provider: Jose Carlos Moyer DO Advanced Supervisor Backfilling:Kyree Phipps PA-C The exam and treatment you received in the Emergency Department were for an urgent problem and are not intended as complete care. It is important that you follow up with a doctor, nurse practitioner, or physician?s assistant professor of biology for ongoing care. If your symptoms become [...] Instructions: With: Address: When: Jeremias Lewis [address] [place] [address] Business (1) In 3 days 08/25/2021 In the event that this physician does not participate in your insurance network, please consult with your insurance company to find a nearby participating provider. Patient Education Materials: Wrist Sprain, Adult A MESSAGE TO ALL PATIENTS REGARDING OPIOIDS PRESCRIPTION OPIOIDS: WHAT YOU NEED TO KNOW Prescription opioids can be used to help relieve zuwdmquj-sx-twefql pain and are often prescribed following a [...] be struggling with addiction, tell your health pharmacy care coordinator and ask for guidance or call [facility]S National Helpline at 8-201-862-ASJR. v Source: [facility] (more content not included)... Normal [facility] Coding Summary.on 11-11-2020 Coding Summary. CODING DATE: 11/11/2020 FINAL [facility] DSC STATUS: Left Against Medical Advice PAYOR: [...] Radha Olivas Date Saved: 11/11/2020 02:10 pm [facility] Consent To Leave AMAon 11-11 Consent To Leave AMA [id number] 1.00CD:127 Normal [facility] ED Clinical Summaryon 2020 ED Clinical Summary [address] [address] ED Clinical Summary Person Information Name: GUERLINE ESCUDERO[place] Age: 30 Years : 1990 Sex: Female Language: [place] Citizen PCP: Rajat MCDONOUGH MD Marital Status: Single Phone: [phone] Visit Id: Visit Reason: BILAT KNEE PAIN [...] 11/10/2020 22:37:40 11/10/2020 22:37:40 11/10/2020 22:37:40 ADDRESS: [address] [place] [phone] PHYS DOC NOTES: MEDICAL INFORMATION: Prescriptions Given: PATIENT EDUCATION INFORMATION: Instructions: Follow up: DIAGNOSIS: 1:Bilateral knee pain Normal [facility] ED Note-Nursingon 11-11-2020 ED Note-Nursing Pt. [...] she wanted to sign out AMA. Normal [facility] ED Note-Physicianon 11-12-19 ED Note-Physician Basic [...] incompatibility affe (more content not included)... Normal [facility] Comment on above: Result Comment: Elec tronically Signed By: RazTrey mitchell MD\.br\Date and Time Signed: 11/11/20 02:43 EDT ED Patient Education Noteon 11-11-2020 ED Patient Education Note Normal [facility] ED Patient Summaryon 021 ED Patient Summary [place] [id number] Patient Discharge Instructions Person Information Name: GUERLINE ESCUDERO Age: 30 Years Arrival Date: 11/10/2020 20:31:34 Discharge Diagnosis: 1:Bilateral knee pain Primary Care Physician: Rajat MCDONOUGH MD Provider Information Primary Provider: Trey Finnegan MD Advanced Supervisor Backfilling:None The exam and treatment you received in the Emergency Department were for an urgent problem and are not intended as complete care. It is important that you follow up with a doctor, nurse practitioner, or physician?s assistant professor of biology for ongoing care. If your symptoms become [...] opioids can be used to help relieve zmhzrfdu-ob-uzhoar pain and are often prescribed following a [...] be struggling with addiction, tell your health pharmacy care coordinator and ask for guidance or call [facility] National Helpline at 1-794-754-WHBI. v Source: US Department of Health and Human Services/Center for Disease Control & Prevention [facility] Medications Given: Medication Dose Route No medications (more content not included)... Normal [facility] XR Knee 1 or 2 Views [...] [place] M.D. Transcribed by: BEN Technologist: ALDAIR [facility] XR Knee 1 or 2 Views Righton 11-11-2020 XR Knee 1 or 2 Views Right Exam Date/Time: 11/10/2020 22:29 EDT Reason for Exam: Pain, Non Traumatic Report IMPRESSION: NEGATIVE RIGHT KNEE. CLINICAL HISTORY: Pain, Non Traumatic. COMMENT: 2 views. The bones of the right knee appear normal without evidence of fracture or dislocation. FINAL REPORT Dictated: 11/11/2020 8:15 am eJremy Reno M.D. Signed (Electronic Signature): 11/11/2020 8:15 am Signed by: Jeremy Reno M.D. Transcribed by: BEN Technologist: ALDAIR [facility] Consent for Treatmenton 10-27 Consent for Treatment [id number] .00CD:127 [facility] Summary Purpose Family History No Family History Records Found Advance Directives No Advanced Directives Records Found Additional Source Comments INFORMATION SOURCE (unrecogn ized section and content) DATE CREATED AUTHOR 10/22/2021 [facility] FOR RECORDS PERTAINING TO PATIENTS WHO ARE [...] BE BASED ON THE PRIMARY CLINICAL RECORDS. [facility]. provides no warranty or guarantee of the accuracy or completeness of information in this document.
--- NOTE | 2025-04-01 19:52 | US_ITS ---
The [address] [address] Patient Name: GUERLINE ESCUDERO MRN: [id number] date: 1990 Sex: F Assigned Patient Location: ED.MAIN Current Patient Location: Accession/Order Number: [id number] Exam Date: 04/01/2025 20:25 Report Date: 04/01/2025 21:53 At the request of: ARABELLA LUTZ MD Procedure: US pelvis w/ transvaginal TRANSABDOMINAL AND TRANSVAGINAL PELVIC ULTRASOUND HISTORY: Left lower quadrant pain. History of ovarian cyst FINDINGS: The uterus measures 7.7 x 3.8 x 5.1 cm. Uterus is anteverted No uterine lesion identified. The endometrium has a total combined thickness of 10mm. The RIGHT ovary measures 5.1 x 3.8 x 3.7 cm. Anechoic right ovarian cyst measures up to 4.8 cm. LEFT ovary measures 2.9 x 1.8 x 2.4 cm. Anechoic left ovarian cyst measures up to 2.1 cm. Bilateral ovarian blood flow identified. Right resistive index 0.6 and the left 0.5. No free fluid identified. There is no adnexal mass identified. US/US pelvis w/ transvaginal IMPRESSION: Bilateral ovarian cysts. Color flow of both ovaries. Anteverted uterus. No free fluid Impression dictated by: Rajat Garza M.D. 04/01/2025 9:53 PM Dictation Location: [place] [address] Electronically authenticated by: [id number] Y Date: 04/01/2025 21:53
--- NOTE | 2025-04-01 19:57 | ED_ITS ---
HPI - Abdominal Pain General Chief Complaint: Abdominal Pain Stated Complaint: Abdominal Pain Time Seen by Provider: 04/01/25 19:46 Source: patient Mode of arrival: walk-in History of Present Illness HPI narrative: This 35-year-old female with a history of an ovarian cyst on the left presents for evaluation of pain in the left lower quadrant of her abdomen. She states the pain has been present for the past 2 to 3 days. She was seen in this emergency department in the past and had a CT scan done that showed a ovarian cyst at that time. She denies the possibility of . She states she does have some urinary symptoms with occasionally having urinary frequency and otherwise not urinating much at all. She has not had any fever. She denies any chest pain or shortness of breath. She denies any vaginal discharge odor or it nano. She is not having any flank pain. Related Data Home Medications ?Medication ?Instructions ?Recorded ?Confirmed No Known Home Medications 04/01/2511/20 Allergies Allergy/AdvReac Type Severity Reaction Status Date / Time morphine Allergy Hives Verified 04/01/25 19:16 Review of Systems ROS Status of ROS 10 or more systems reviewed and unremark able except as noted in history and below PFSH PFS Social History Little interest or pleasure in doing things: not at all Feeling down, depressed, or hopeless: not at all Exam Narrative Exam Narrative: Vital signs and Nursing Notes reviewed: Patient is afebrile with a normal pulse, normal blood pressure, she is not hypoxic with pulse ox of 100% on room air General: Thin female, she is awake, alert, oriented, no acute distress, lying comfortably on the stretcher-moves easily about the stretcher without any sign of distress HEENT: Normocephalic atraumatic, mucous membranes are moist and pink, eyes are clear, normal conjunctiva, vision is grossly intact Chest: Lungs are clear to auscultation with good air entry, there is no wheezing rhonchi or rales appreciated no accessory muscle use, patient is speaking in complete sentences-no chest wall tenderness to palpation CVS: Regular rate and rhythm S1-S2, no murmurs rubs or gallops, pulses are brisk and equal bilaterally ABD: Soft, nondistended, mild tenderness in the left lower quadrant/left adnexal region, abdomen is otherwise soft, nondistended with mild tenderness in RLQ, negative Rovsing sign, no right upper quadrant epigastric or left upper quadrant tenderness appreciated no CVA tenderness appreciated Extremities: Moving all extremities, no lower extremity tenderness or swelling noted, negative Homans' sign, pulses are brisk and equal bilaterally Skin: Normal in appearance without rash,pallor, petechiae or purpura Neuro: No focal deficits Constitutional Vital Signs, click to edit/add: Last Vital Signs Temp 98.0 F 04/01/25 19:13 Pulse 88 04/01/25 19:13 Resp 20 04/01/25 19:13 BP 126/91 04/01/25 19:13 Pulse Ox 100 04/01/25 19:13 O2 Del Method Room Air 04/01/25 19:13 Course Vital Signs Vital signs: Vital Signs Temperature 98.0 F 04/01/25 19:13 Pulse Rate 88 04/01/25 19:13 Respiratory Rate 20 04/01/25 19:13 Blood Pressure 126/91 04/01/25 19:13 Pulse Oximetry 100 04/01/25 19:13 Oxygen Delivery Method Room Air 04/01/25 19:13 Temperature 98.0 F 04/01/25 19:13 Pulse Rate 88 04/01/25 19:13 Respiratory Rate 04/01/25 19:13 Blood Pressure 126/91 04/01/25 19:13 Pulse Oximetry 100 04/01/25 19:13 Oxygen Delivery Method Room Air 04/01/25 19:13 MDM - Abdominal Pain MDM Narrative Medical decision making narrative: This 35-year-old female with a history of an ovarian cyst on the left presents for evaluation of left adnexal abdominal pain that has been present for the past 2 to 3 days associated with some mild nausea. She also complains of some mild urinary symptoms. She has not had any fever. She is mildly tender in the left lower quadrant and right lower quadrant with a negative Rovsing sign. Due to her history of an ovarian cyst that pelvic ultrasound was ordered. The ultrasound shows an anechoic right ovarian cyst measuring up to 4.8 cm and there is a left ovarian cyst measuring up to 2.1 cm. Bilateral ovarian flow was noted there was no free fluid identified and no adnexal masses identified. She has a normal white count and hemoglobin. Electrolytes are normal. test was negative. After the ultrasound the patient alerted us to the fact that she had to leave emergently due to a family emergency. I did try to contact her with the phone number that she provided at the time of triage but that number is no longer in service. I then left a message with her mother/emergency contact. She signed out AGAINST MEDICAL ADVICE verbalizing understanding of the risk of undiagnosed abdominal pain and potential for long-term consequences including . Lab Data Labs: Lab Results 04/01/25 Range/Units 20:15 WBC 13.1 H (4.0-11.0) 10^3/uL RBC 4.98 (4.20-5.40) 10^6/uL Hgb 16.0 (12.0-16.0) g/dL Hct 47.3 (36.0-48.0) % MCV 95.0 (81.0-99.0) fL MCH 32.1 (26.7-34.0) pg MCHC 33.8 (29.9-35.2) g/dL RDW 13.1 (11.0-15.0) % Plt Count 565 H (150-450) 10^3/uL MPV 10.6 (9.5-13.5) fL Neut % (Auto) 77.5 H (43.0-75.0) % Lymph % (Auto) 14.3 L (20.5-60.0) % [place] % (Auto) 5.6 (1.7-12.0) % Eos % (Auto) 1.4 (0.9-7.0) % Baso % (Auto) 0.8 (0.2-2.0) % Neut # (Auto) 10.2 H (1.4-6.5) 10^3/uL Lymph # (Auto) 1.9 (1.2-3.8) 10^3/uL [place] # (Auto) 0.7 (0.3-0.8) 10^3/uL Eos # (Auto) 0.2 (0.0-0.7) 10^3/uL Baso # (Auto) 0.1 (0.0-0.1) 10^3/uL Abs Immat Gran (auto) 0.05 H (0.00-0.03) 10^3/uL Imm/Tot Granulo (auto) 0.4 (0.0-0.5) % Sodium 140 (136-145) mmol/L Potassium 4.3 (3.5-5.1) mmol/L Chloride 103 (98-107) mmol/L Carbon Dioxide 27.2 (21.0-32.0) mmol/L Anion Gap 14.1 BUN 9.0 (7.0-18.0) mg/dL Creatinine 0.57 (0.55-1.02) mg/dL Est GFR ( Amer) >60 (>=60 mL/min/1.73m^2) Est GFR (Non-Af Amer) >60 (>=60 mL/min/1.73m^2) BUN/Creatinine Ratio 15.8 Glucose 92 (74-106) mg/dL Calcium 9.8 (8.5-10.1) mg/dL Total Bilirubin 0.3 (0.2-1.0) mg/dL AST 12 L (15-37) U/L ALT 11 L (14-59) U/L Alkaline Phosphatase 109 (46-116) U/L Total Protein 8.8 H (6.4-8.2) g/dL Albumin 4.5 (3.4-5.0) g/dL Globulin 4.3 g/dL Albumin/Globulin Ratio 1.0 Serum HCG, Qual Negative (NEGATIVE) Imaging Data US - abdomen: Radiologist's impression: ITS Impressions Transvaginal US 04/01/25 19:52 IMPRESSION: Bilateral ovarian cysts. Color flow of both ovaries. Anteverted uterus. No free fluid Impression dictated by: Rajat Garza M.D. 04/01/2025 9:53 PM Dictation Location[facility] Electronically authenticated by: [id number] Y Date: 04/01/2025 21:53 Discharge Plan Discharge Stand Alone Forms: Portal Instructions Chief Complaint: Abdominal Pain Clinical Impression: Ovarian cyst Patient Disposition: Left Against Medical Advice Condition: Good Prescriptions / Home Meds: No Action No Known Home Medications Print Language: Algerian Referrals: Physician,Non-Staff, MD [Primary Care Provider] - 1 week Discharge Date/Time: 04/01/25 21:29
[2025-04-01] MEDS: 0.9 % SODIUM CHLORIDE 1,000 ML 1000 ML IV (20:24)
[2025-04-01] MEDS: KETOROLAC TROMETHAMINE 30 MG/ML VIAL IVP (20:26)
[2025-04-01 20:40] LABS: Alanine Aminotransferase 11 U/L (14-59); Albumin Globulin Ratio 1.0; Albumin Level 4.5 g/dL (3.4-5.0); Alkaline Phosphatase 109 U/L (46-116); Anion Gap 14.1; Aspartate Amino Transferase 12 U/L (15-37); Blood Urea Nitrogen 9.0 mg/dL (7.0-18.0); Calcium 9.8 mg/dL (8.5-10.1); Carbon Dioxide 27.2 mmol/L (21.0-32.0); Chloride 103 mmol/L (98-107); Estimated GFR (African America >60 (>=60 mL/min/1.73m^2); Estimated GFR (Non-African Ame >60 (>=60 mL/min/1.73m^2); Globulin 4.3 g/dL; Glucose 92 mg/dL (74-106); Potassium 4.3 mmol/L (3.5-5.1); Sodium 140 mmol/L (136-145); Total Protein 8.8 g/dL (6.4-8.2)
[2025-04-01 21:17] LABS: Hematocrit 47.3 % (36.0-48.0); Hemoglobin 16.0 g/dL (12.0-16.0); Immature Granulocytes Abs Auto 0.05 10^3/uL (0.00-0.03); Immature Granulocytes Pct Auto 0.4 % (0.0-0.5); Lymphocytes Absolute Auto 1.9 10^3/uL (1.2-3.8); Mean Corpuscular HGB Conc 33.8 g/dL (29.9-35.2); Mean Corpuscular Hemoglobin 32.1 pg (26.7-34.0); Mean Corpuscular Volume 95.0 fL (81.0-99.0); Platelet Count 565 10^3/uL (150-450); Red Blood Count 4.98 10^6/uL (4.20-5.40); White Blood Count 13.1 10^3/uL (4.0-11.0)
--- NOTE | 2025-04-01 21:27 | PC.NURSE ---
Patient reports having a family emergency , requests to discharge at this time. Dr. Simmons notified.
== END 2025-04-01 21:29 | disposition left against medical advice (07) ==
PROVIDERS: Emergency Provider Emergency Medicine
DX: N83.202 Unspecified ovarian cyst, left side (principal); Z53.29 Procedure and treatment not carried out because of patient's decision for other reasons; N83.201 Unspecified ovarian cyst, right side
CPT/HCPCS: 36415; 76830; 76856; 80053; 81001; 84703; 85025; 96374; 96375; 99285; J1885; J2405

== ENCOUNTER 2025-05-31 21:06 | Emergency (ER) | payer MEDICAID, SELFPAY ==
[2025-05-31 21:13] VITALS: BP 147/74; PULSE 79; TEMP 36.9; O2SAT 100; BMI 24.6
--- OUTSIDE RECORDS SUMMARY | 2025-05-31 21:16 | XMS_ITS | CCD ---
Author Organization [facility] Results Test NameValueInterpretationReference RangeFacilityPrescriptions/Work Noteson 45-13-1297Gmnmkaqnpqgfi/Work Notes [id number]#1.00CD:[address] [place], [place] [address]RAD - Preliminary Cat Scan Reporton 34-70-0155FTC - Preliminary Cat Scan [id number]#1.00CD:[address] [place], [place] [address]Comment on above:Other Comment: wrong finXR Wrist 3+ Views Lefton 79-94-6614EX Wrist 3+ Views LeftExam Date/Time: 08/22/2021 17:46 EST Reason for Exam: [...] Myers MD, V. Transcribed by: BEN Technologist: LINDAZanesville City HospitalCoding Summary.on 76-67-4321Dbrbuz Summary. CD:[id number]+PGhlYWQ+[id number]FDZ8UYO9nf XB3VOrmW4YqrtCk [file] c2U6 (more content not included)...[facility] HospitalConsent for Treatmenton 78-18-4233Chgeqby for Treatment [id number]#1.00CD:127NoTriHealth Bethesda North HospitalDischarge Instructionson 86-88-4525Ypwcojkgu Instructions [id number]:127NoGreen [facility] Clinical Summaryon 44-51-1775LQ Clinical Summary [place] [id number] ED Clinical Summary Person Information Name: GUERLINE ESCUDERO Marlene/[facility] Age: 31 Years : 1990 Sex: Female Language: Upper Sorbian PCP: Rajat MCDONOUGH MD Marital Status: Single Phone: [phone] Visit Id: Visit Reason: Wrist pain-swelling; left [...] 08/22/2021 18:05:55 08/22/2021 18:05:55 08/22/2021 18:05:55 ADDRESS: [address] [place] [phone] PHYS DOC NOTES: MEDICAL INFORMATION: Prescriptions Given: New Medications [facility] [address] [place], [place] [id number], [phone] naproxen (Naprosyn 500 mg Tab) 1 Tablets By Mouth 2 times a day. Refills: 0. PATIENT EDUCATION INFORMATION: Instructions: Wrist Sprain, Adult Follow up: With: Address: When: Jeremias Lewis [address] [place] [id number] Business (1) In 3 days 08/25/2021 DIAGNOSIS: Wrist sprainNormalFisher Spenser Medical CenterED Note-Physicianon 63-39-5166MR Note-PhysicianBasic Information Time Seen: Jose Carlos Moyer DO [...] symptoms worsen or change. Assessment/Plan Wrist sprain (S63.509A: Unspecified sprain of unspecified wrist, initial encounter) Orders: naproxen, 500 mg = 1 tab(s), Oral, BID, # 20 tab(s), Refills(s) 0, Pharmacy: [facility], 152, cm, 08/22/21 17:26:00 EST, Height/Length Dosing, [...] Information Jeremias Lewis In 3 days 08/25/[address] [facility](1) Additional Instructions: Patient Education Wrist Sprain, Adult Attestation Patient seen and evaluated by the physician patient assistant. Attending physician was present in the emergency department and supervised care. This visit was performed by both the physician and an APC. I performed all aspects of the MDM as documented. This report was transcribed using voice recognition software. Every effort was made to ensure accuracy, however, inadvertently computerized wheel press operator mistakes may be present. Appropriate healthcare PPE [...] in household: No. Smoker in household: Yes. Injuries/Abuse/Neglect in household: No. Feels unsafe at home: Yes. Safe place to go: Yes. Family/Frie (more content not included)...[facility] Vincent HospitalComment on above:Result Comment: Electronically Signed By: Kyree Phipps PA-C\.br\Date and Time Signed: 08/22/2216:53 EST\.br\Electronically Co-Signed By: Jose Carlos Moyer DO\.br\Date and Time Co-Signed: 08/22/21 18:42 ESTED Patient Education Noteon 45-49-7771KS Patient Education NoteOrthopedics Wrist Sprain, Adult A wrist sprain is [...] health care provider. General instructions ? Take ysbe-hfx-vjnnqmx and prescription medicines only as told by [...] 03/18/2015 Document Revised: 06/27/2018 Document Reviewed: 01/31/2017 [place] Patient Education ? 2019 [employer].[facility] ED Patient Summaryon 29-03-4058RZ Patient Summary [facility] [address] [place], [place] [address] Patient Discharge Instructions Person Information Name: GUERLINE ESCUDERO Age: 31 Years Arrival Date: 08/22/2021 17:15:06 Discharge Diagnosis: Wrist sprain Primary Care Physician: Rajat MCDONOUGH MD Provider Information Primary Provider: Jose Carlos Moyer DO Advanced Managing Manager:Kyree Phipps PA-C The exam and treatment you received in the Emergency Department were for an urgent problem and are not intended as complete care. It is important that you follow up with a doctor, nurse practitioner,or physician?s patient assistant for ongoing care. If your symptoms become worse or you do not improve as expected and you are unable to reach your usual health care provider, you should return to the Emergency Department. We are available 24 hours a day. GUERLINE ESCUDERO has been given the following list of patient education materials, prescriptions andfollow-up instructions: Follow-up Instructions: With: Address: When: Jeremias Lewis [address] [place] [address] Business (1) In 3 days 08/25/2021 In the event that this physician does not participate in your insurance network, please consult with your insurance company to find a nearby participating provider. Patient Education Materials: Wrist Sprain, Adult A MESSAGE TO ALL PATIENTS REGARDING OPIOIDS PRESCRIPTION OPIOIDS: WHAT YOU NEED TO KNOW Prescription opioids can be used to help relieve lycslqvy-bb-qtemjl pain and are often prescribed following a [...] and have fewer risks and side effects. Optionsmay include: ? Pain relievers such as acetaminophen, [...] unused prescription opioids: Find your community drug take- back program or [place] mail-back program, or flush them down the toilet, following guidance from the Food and Drug Administration (www.fda.gov/Drugs/ResourcesForYou). ? Visit www.cdc.gov/drugoverdose to learn about the risks of opioids abuse and overdose. ? If you believe you may be struggling with addiction, tell your health customer care team coach and ask for guidance or call [facility]?S National Helpline at 8-737-815-XPVK. f Source: [facility] (more content not included)...[facility]. Vincent HospitalCoding Summary.on 61-77-5856Lpoihp Summary.CODING DATE: 11/11/2020 FINAL [facility] DSC STATUS: Left Against Medical Advice PAYOR: [...] By: Radha Olivas Date Saved: 11/11/2020 02:10 pmNZanesville City HospitalConsent To Leave AMAon 88-72-9099Bycpodo To Leave AMA [id number]:127NormalFisher [facility] Clinical Summaryon [id number] Clinical Summary [address] [address] ED Clinical Summary Person Information Name: GUERLINE ESCUDERO [place] Age: 30 Years : 1990 Sex: Female Language: Upper Sorbian PCP: Rajat MCDONOUGH MD Marital Status: Single Phone: [phone] Visit Id: Visit Reason: BILAT KNEE PAIN [...] 11/10/2020 22:37:40 11/10/2020 22:37:40 11/10/2020 22:37:40 ADDRESS: [address] [place] [phone] PHYS DOC NOTES: MEDICAL INFORMATION: Prescriptions Given: PATIENT EDUCATION INFORMATION: Instructions: Follow up: DIAGNOSIS: 1:Bilateral knee painNormalFisher Spenser Medical CenterED Note-Nursingon [id number] Note-NursingPt. 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 This nurse went in to try and educate pt. on why bloodwork was being ordered, and that we needed samples in order to proceed with her treatment. After multiple attempts to educate pt, pt. decided she still did not want blood drawn, and stated she wanted to sign out AMA.NormalFishemmy Dueñas Medical CenterED Note-Physicianon [id number] Note-PhysicianBasic Information Time Seen: Sivan DUBON, Trey 11/10/2020 20:55 Chief Complaint c/o bilateral knee pain for the past week. Hx MS History of Present Illness Patient came here because of bilateral knee pain for last 1 week. Patient has history of MS. Patient is not complaining of any unusual activity. Patient does not have any trauma to her knees. Patientis describing her pain to be 4 out [...] no food allergies, no recurrent infections, no impairedimmunity Additional ROS info: Except as noted in [...] distended, no tenderness, no guarding bowel sounds normal.Hepatosplenomegaly negative Genitourinary Normal Back: No tenderness, Normal [...] in household: No. Smoker in household: Yes. Injuries/Abuse/Neglect in household: No. Feels unsafe at home: Yes. Safe place to go: Yes. Family/Friends available for support: Yes. Concernfor family members at home: No. Major illness [...] Father. Rh incompatibility affe (more content not included)...[facility]. Vincent HospitalComment on above:Result Comment: Electronically Signed By: Sivan DUBON, Trey\.br\Date and Time Signed: 11/11/20 02:43 EDTED Patient Education Noteon [id number] Patient Education NoteNormBellevue Hospital Patient Summaryon [id number] Patient Summary [place] [id number] Patient Discharge Instructions Person Information Name: GUERLINE ESCUDERO Age: 30 Years Arrival Date: 11/10/2020 20:31:34 Discharge Diagnosis: 1:Bilateral knee pain Primary Care Physician: Rajat MCDONOUGH MD Provider Information Primary Provider: Trey Finnegan MD Advanced Managing Manager:None The exam and treatment you received in the Emergency Department were for an urgent problem and are not intended as complete care. It is important that you follow up with a doctor, nurse practitioner,or physician?s patient assistant for ongoing care. If your symptoms become worse or you do not improve as expected and you are unable to reach your usual health care provider, you should return to the Emergency Department. We are available 24 hours a day. GUERLINE ESCUDERO has been given the following list of patient education materials, prescriptions andfollow-up instructions: Follow-up Instructions: In the event that this physician does not participate in your insurance network, please consult with your insurance company to find a nearby participating provider. Patient Education Materials: A MESSAGE TO ALL PATIENTS REGARDING OPIOIDS PRESCRIPTION OPIOIDS: WHAT YOU NEED TO KNOW Prescription opioids can be used to help relieve rkuatlqu-dq-bmswam pain and are often prescribed following a [...] and have fewer risks and side effects. Optionsmay include: ? Pain relievers such as acetaminophen, [...] unused prescription opioids: Find your community drug take- back program or [facility] mail-back program, or flush them down the toilet, following guidance from the Food and Drug Administration (www.fda.gov/Drugs/ResourcesForYou). ? Visit www.cdc.gov/drugoverdose to learn about the risks of opioids abuse and overdose. ? If you believe you may be struggling with addiction, tell your health customer care team coach and ask for guidance or call [facility]?S National Helpline at 7-670-329-SXQN. v Source: US Department of Health and Human Services/Center for Disease Control & Prevention [facility] Medications Given: Medication Dose Route No medications (more content not included)...St. Vincent HospitalXR Knee 1 or 2 Views Lefton [id number] Knee 1 or 2 Views LeftExam Date/Time: 11/10/2020 22:29 EDT Reason for Exam: Pain, Non Traumatic Report IMPRESSION: NEGATIVE LEFT KNEE. CLINICAL HISTORY: Pain, Non Traumatic. COMMENT: 2 views. The bones of the left knee appear normal without evidence of fracture or dislocation. FINAL REPORT Dictated: 11/11/2020 8:14 am Jeremy Reno M.D. Signed (Electronic Signature): 11/11/2020 8:14 am Signed by: Jeremy Reno M.D. Transcribed by: BEN Technologist: SuzanneTriHealth Bethesda North HospitalXR Knee 1 or 2 Views Righton [id number] Knee 1 or 2 Views RightExam Date/Time: 11/10/2020 22:29 EDT Reason for Exam: Pain, Non Traumatic Report IMPRESSION: NEGATIVE RIGHT KNEE. CLINICAL HISTORY: Pain, Non Traumatic. COMMENT: 2 views. The bones of the right knee appear normal without evidence of fracture or dislocation. FINAL REPORT Dictated: 11/11/2020 8:15 am Jeremy Reno M.D. Signed (Electronic Signature): 11/11/2020 8:15 am Signed by: Jeremy Reno M.D. Transcribed by: BEN Technologist: SuzanneTriHealth Bethesda North HospitalConsent for Treatmenton [id number] for Treatment [id number]:127[facility] Summary Purpose Family History No Family History Records Found Advance Directives No Advanced Directives Records Found Additional Source Comments INFORMATION SOURCE (unrecogn ized section and content) DATE CREATED AUTHOR 10/22/2021 [place] FOR RECORDS PERTAINING TO PATIENTS WHO ARE [...] BE BASED ON THE PRIMARY CLINICAL RECORDS. [facility] [employer] [facility]. provides no warranty or guarantee of the accuracy or completeness of information in this document.
--- OUTSIDE RECORDS SUMMARY | 2025-05-31 21:17 | XMS_ITS | Clinical Summary ---
Author Organization [facility] Address [address] [place] [address] Care Team Providers Care Plant Director Name Role Phone Unavailable Primary Care Provider Unavailabl e Social History Tobacco UseTypesPacks/DayYears UsedDateSmoking Tobacco: Never Assessed CommentsUnknownSex and Gender InformationValueDate RecordedSex Assigned at Not on fileLegal XvlBmbgmn29/15/2023 7:37 PM EDTGender IdentityNot on fileSexual OrientationNot on file Plan of Treatment Not on file Insurance
--- OUTSIDE RECORDS SUMMARY | 2025-05-31 21:17 | XMS_ITS | Clinical Summary ---
Author Organization [facility] [facility] tem Address [id number] [address] [place] [address] Care Team Providers Care Steam Pan Sponger Name Role Phone Unavailable Primary Care Provider Unavailabl e Allergies No known active allergies Medications No known medications Active Problems ProblemNoted DateDiagnosed DateMS (multiple sclerosis)04/15/2023Heroin abuse 04/15/2023 Family History Medical HistoryRelationNameCommentsColon cancerFatherDiabetesMaternal GrandfatherHeart diseaseMaternal GrandfatherDiabetesMaternal GrandmotherHeart diseaseMaternal GrandmotherHeart diseaseMotherRelationNameStatusCommentsFather Maternal GrandfatherMaternal GrandmotherMother Social History Tobacco UseTypesPacks/DayYears UsedDateSmoking Tobacco: Every DayCigarettes0.5 3.1Started: 04/15/2022lcohol UseStandard Drinks/WeekCommentsNot Currently0 (1 standard drink = 0.6 oz pure alcohol)PHQ-2AnswerDate RecordedTotal Score0 04/15/2023Hunger ScreeningAnswerDate RecordedWithin the past 12 months we worried whether our food would run out before we got money to buy more.Never True04/15/2023Within the past 12 months the food we bought just didn't last and we didn't have money to get more.Never True04/15/2023CommentsUnknownSex and Gender InformationValueDate RecordedSex Assigned at BirthNot on fileLegal EeuHqzygg80/14/2023 12:32 PM EDTGender IdentityNot on fileSexual OrientationNot on file Last Filed Vital Signs Vital SignReadingTime TakenCommentsBlood Lrluijtf526/7209 2:08 PM EDT Hcuoc9292 2:08 PM XQFNzhjkurjtnd60.3 ??C (99.1 ??F)04/15/2023 2:08 PM EDTRespiratory Huhr026704/15/2023 2:08 PM EDTOxygen Rvstsrkvfx40%04/15/2023 2:08 PM EDTInhaled Oxygen Concentration--Iprlus61.9 kg (152 lb)04/15/2023 2:08 PM EDT Ibuiyz546.4 cm (5')04/15/2023 2:08 PM EDTBody Mass Index29.69004/15/2023 2:08 PM EDT Plan of Treatment Health MaintenanceDue DateLast DoneCommentsTobacco Ouxbqtsmm74/14/2001DTaP,Tdap and Td Vaccines (1 - Tdap)2008Pap Smear2010dult BMI Screening epression Ddxskuoxu11Influenza Vaccine 03/29/2025 Medical Devices Not on file Insurance
--- NOTE | 2025-05-31 21:22 | CT_ITS ---
The [address] [address] Patient Name: GUERLINE ESCUDERO MRN: [id number] date: 1990 Sex: F Assigned Patient Location: ER Current Patient Location: ER Accession/Order Number: [id number] Exam Date: 05/31/2025 22:01 Report Date: 05/31/2025 23:00 At the request of: DYLON NICOLAS MD Procedure: CT abdomen pelvis w con CT Abdomen and Pelvis withcontrast TECHNIQUE: Axial imaging with 2-D reconstruction. The CT exam was performed using one or more the following dose reduction techniques: Automated exposure control, adjustment of the MA and/or Kv according to patient size, or use of the iterative reconstruction technique. COMPARISON: 08/17/2024 History: Lower abdominal pain. History of ovarian cyst. LIMITATIONS: None LOWER THORAX Unremarkable LIVER: Focal fatty infiltration near falciform ligament. GALLBLADDER: Cholecystectomy clips identified. BILE DUCTS: No dilatation SPLEEN: Unremarkable PANCREAS: Unremarkable ADRENAL GLANDS: Unremarkable KIDNEYS:Unremarkable AORTA: No abdominal aortic aneurysm identified. RETROPERITONEUM: No significant retroperitoneal abnormalities identified. MESENTERY:Unremarkable STOMACH:Unremarkable SMALL BOWEL: The small bowel loops are nondistended. APPENDIX: The appendix is normal. COLON: Moderate burden of stool throughout the colon. URINARY BLADDER: Urinary bladder is unremarkable. REPRODUCTIVE SYSTEM: 5.3 cm septated right adnexal cyst. Likely ovarian. Uterus unremarkable. PNEUMOPERITONEUM: None PERITONEAL FLUID:Low-density low volume free fluid in the pelvis likely physiologic BONY STRUCTURES: Unremarkable ABDOMINAL WALL: Unchanged at 1.6 cm left breast nodule. CT/CT abdomen pelvis w con IMPRESSION: 5.3 cm septated right adnexal cyst likely ovarian. Trace pelvic free fluid likely physiologic. Constipation. Impression dictated by: Rajat Garza M.D. 05/31/2025 11:00 PM Dictation Location: [place] [address] Electronically authenticated by: [id number] Y Date: 05/31/2025 23:00
--- NOTE | 2025-05-31 21:23 | ED_ITS ---
HPI - Abdominal Pain General Chief Complaint: Abdominal Pain Stated Complaint: PAIN IN ABDOMAN Time Seen by Provider: 05/31/25 21:17 Source: patient Mode of arrival: walk-in Limitations: no limitations History of Present Illness HPI narrative: known ovarian cyst. Presents complaining of lower abdomen pain present all day. Constant pain. No diarrhea, constipation or vomiting. No urinary symptoms or fever Related Data Home Medications ?Medication ?Instructions ?Recorded ?Confirmed No Known Home Medications 04/01/2510/20 Allergies Allergy/AdvReac Type Severity Reaction Status Date / Time morphine Allergy Hives Verified 05/31/25 21:17 Review of Systems 2 ROS0 Status of ROS 10 or more systems reviewed and unremark able except as noted in history and below PFSH [facility] Social History Little interest or pleasure in doing things: not at all Feeling down, depressed, or hopeless: not at all Exam Constitutional Vital Signs, click to edit/add: Last Vital Signs Temp 98.4 F 05/31/25 21:13 Pulse 79 05/31/25 21:13 Resp 18 05/31/25 21:13 BP 147/74 H 05/31/25 21:13 Pulse Ox 100 05/31/25 21:13 O2 Del Method Room Air 05/31/25 21:13 Common normals: no apparent distress, average body habitus, oriented x3, no limitations, healthy appearing, alert and well nourished [facility] Common normals: normocephalic and head/scalp atraumatic Eye Common normals: EOMs intact bilaterally and conjunctivae normal Respiratory Common normals: normal respiratory effort, no retractions, no use of accessory muscles and clear to auscultation bilaterally Cardio Common normals: regular rate, regular rhythm, S1 normal heart sound and S2 normal heart sound GI GI image (female): 2 1. tender. no guarding Extremity Common normals: normal to inspection and full ROM Neuro Common normals: oriented x3, CN's II-XII intact bilaterally, moves all extremities and no focal motor deficits Psych Appearance: grossly normal Course Vital Signs Vital signs: Vital Signs Temperature 98.4 F 05/31/25 21:13 Pulse Rate 79 05/31/25 21:13 Respiratory Rate 18 05/31/25 21:13 Blood Pressure 147/74 H 05/31/25 21:13 Pulse Oximetry 100 05/31/25 21:13 Oxygen Delivery Method Room Air 05/31/25 21:13 Temperature 98.4 F 05/31/25 21:13 Pulse Rate 79 05/31/25 21:13 Respiratory Rate 18 05/31/25 21:13 Blood Pressure 147/74 H 05/31/25 21:13 Pulse Oximetry 100 05/31/25 21:13 Oxygen Delivery Method Room Air 05/31/25 21:13 MDM - Abdominal Pain MDM Narrative Medical decision making narrative: patient has known right ovarian cyst. Presents complaining of increased lower abdominal pain. labs unremarkable except urine with possible UTI. Patient denies past history of UTI or symptoms of dysuria, hematuria or flank pain. Urine cx ordered. CT also with findings of constipation. Patient did not want an enema. given a suppository she can use at home and advised to follow up with her PCP and bicycle racer Lab Data Labs: Lab Results 05/31/25 05/31/25 Range/Units 21:21 22:26 WBC 9.7 (4.0-11.0) 10^3/uL RBC 3.82 L (4.20-5.40) 10^6/uL Hgb 12.0 (12.0-16.0) g/dL Hct 36.1 (36.0-48.0) % MCV 94.5 (81.0-99.0) fL MCH 31.4 (26.7-34.0) pg MCHC 33.2 (29.9-35.2) g/dL RDW 12.8 (11.0-15.0) % Plt Count 368 (150-450) 10^3/uL MPV 10.3 (9.5-13.5) fL Neut % (Auto) 62.2 (43.0-75.0) % Lymph % (Auto) 22.2 (20.5-60.0) % [place] % (Auto) 8.2 (1.7-12.0) % Eos % (Auto) 6.6 (0.9-7.0) % Baso % (Auto) 0.6 (0.2-2.0) % Neut # (Auto) 6.0 (1.4-6.5) 10^3/uL Lymph # (Auto) 2.1 (1.2-3.8) 10^3/uL [place] # (Auto) 0.8 (0.3-0.8) 10^3/uL Eos # (Auto) 0.6 (0.0-0.7) 10^3/uL Baso # (Auto) 0.1 (0.0-0.1) 10^3/uL Abs Immat Gran (auto) 0.02 (0.00-0.03) 10^3/uL Imm/Tot Granulo (auto) 0.2 (0.0-0.5) % Sodium 141 (136-145) mmol/L Potassium 3.3 L (3.5-5.1) mmol/L Chloride 104 (98-107) mmol/L Carbon Dioxide 28.6 (21.0-32.0) mmol/L Anion Gap 11.7 BUN 7.0 (7.0-18.0) mg/dL Creatinine 0.70 (0.55-1.02) mg/dL Est GFR ( Amer) >60 (>=60 mL/min/1.73m^2) Est GFR (Non-Af Amer) >60 (>=60 mL/min/1.73m^2) BUN/Creatinine Ratio 10.0 Glucose 92 (74-106) mg/dL Lactate 1.3 (0.4-2.0) mmol/L Calcium 9.1 (8.5-10.1) mg/dL Total Bilirubin 0.2 (0.2-1.0) mg/dL AST 12 L (15-37) U/L ALT 19 (14-59) U/L Alkaline Phosphatase 82 (46-116) U/L Total Protein 7.3 (6.4-8.2) g/dL Albumin 3.9 (3.4-5.0) g/dL Globulin 3.4 g/dL Albumin/Globulin Ratio 1.1 Lipase 17.0 (16.0-77.0) U/L Urine Color Lt. yellow (YELLOW) Urine Clarity Clear (CLEAR) Urine pH 6.0 (5.0-9.0) Ur Specific [place] <=1.005 A (1.005-1.025) Urine Protein Negative (NEG/TRACE) mg/dL Urine Glucose (UA) Negative (NEGATIVE) mg/dL Urine Ketones Negative (NEGATIVE) mg/dL Urine Occult Blood Trace-i (NEGATIVE) Urine Nitrite Negative (NEGATIVE) Urine Bilirubin Negative (NEGATIVE) Urine Urobilinogen 0.2 (0.2-1.0) EU/dL Ur Leukocyte Esterase Trace A (NEGATIVE) Urine RBC 0-2 (0-2) #/HPF Urine WBC 5-10 A (NONE SEEN) #/HPF Ur Squamous Epith Cells Rare (NONE/RARE) #/LPF Urine Crystals None seen (None Seen) #/HPF Urine Bacteria None seen (NONE SEEN) #/HPF Urine Casts None seen (NONE SEEN) #/LPF Urine Mucus None seen (NONE SEEN) Ur Culture Indicated? Yes-[facility] [place] Urine HCG, Qual Negative (NEGATIVE) Discharge Plan Discharge Chief Complaint: Abdominal Pain Clinical Impression: Ovarian cyst, Constipation Patient Disposition: Home, Self-Care Prescriptions / Home Meds: No Action No Known Home Medications Print Language: Turkish Instructions: Ovarian Cyst (ED), Constipation (ED) Additional Instructions: use laxative. follow up with your bicycle racer Referrals: Physician,Non-Staff, [Primary Care Provider] - 1 week
[2025-05-31 21:31] LABS: Hematocrit 36.1 % (36.0-48.0); Hemoglobin 12.0 g/dL (12.0-16.0); Immature Granulocytes Abs Auto 0.02 10^3/uL (0.00-0.03); Immature Granulocytes Pct Auto 0.2 % (0.0-0.5); Lymphocytes Absolute Auto 2.1 10^3/uL (1.2-3.8); Mean Corpuscular HGB Conc 33.2 g/dL (29.9-35.2); Mean Corpuscular Hemoglobin 31.4 pg (26.7-34.0); Mean Corpuscular Volume 94.5 fL (81.0-99.0); Platelet Count 368 10^3/uL (150-450); Red Blood Count 3.82 10^6/uL (4.20-5.40); White Blood Count 9.7 10^3/uL (4.0-11.0)
[2025-05-31 21:47] LABS: Alanine Aminotransferase 19 U/L (14-59); Albumin Globulin Ratio 1.1; Albumin Level 3.9 g/dL (3.4-5.0); Alkaline Phosphatase 82 U/L (46-116); Anion Gap 11.7; Aspartate Amino Transferase 12 U/L (15-37); Blood Urea Nitrogen 7.0 mg/dL (7.0-18.0); Calcium 9.1 mg/dL (8.5-10.1); Carbon Dioxide 28.6 mmol/L (21.0-32.0); Chloride 104 mmol/L (98-107); Estimated GFR (African America >60 (>=60 mL/min/1.73m^2); Estimated GFR (Non-African Ame >60 (>=60 mL/min/1.73m^2); Globulin 3.4 g/dL; Glucose 92 mg/dL (74-106); Lipase 17.0 U/L (16.0-77.0); Potassium 3.3 mmol/L (3.5-5.1); Sodium 141 mmol/L (136-145); Total Protein 7.3 g/dL (6.4-8.2)
[2025-05-31 21:50] LABS: Lactate/Lactic Acid 1.3 mmol/L (0.4-2.0)
[2025-05-31] MEDS: 0.9 % SODIUM CHLORIDE 1,000 ML 999 ML IV (21:55)
[2025-05-31 22:33] LABS: Glucose Urine UA NEGATIVE (NEGATIVE)
[2025-05-31 22:35] LABS: HCG Qualitative Urine* NEGATIVE (NEGATIVE)
[2025-05-31 22:40] LABS: Cast Seen? NONE SEEN #/LPF (NONE SEEN); Crystals Seen? None Seen #/HPF (None Seen); Urine Culture Indicated YES-FRMC
[2025-05-31] MEDS: GLYCERIN ADULT 2 GRAM RECTAL SUPPOSITORY 1 SUPP PR (23:34)
== END 2025-05-31 23:36 | disposition home or self-care (01) ==
PROVIDERS: Emergency Provider Internal Medicine
DX: N83.201 Unspecified ovarian cyst, right side (principal); K59.00 Constipation, unspecified
CPT/HCPCS: 36415; 74177; 80053; 81001; 83605; 83690; 84703; 85025; 87086; 99285; Q9967